=== PATIENT | female | born 1975 | race Caucasian/White ===

== ENCOUNTER 2020-04-08 15:31 | Outpatient (REF) | payer MEDICARE, MEDICAID, SELFPAY | END 2020-04-08 15:32 | disposition home or self-care (01) | LOC: HO.LAB 15:31 | PROVIDERS: Visit Provider Internal Medicine | DX: Z20.828 Contact with and (suspected) exposure to other viral communicable diseases (principal) | CPT/HCPCS: C9803; U0003 ==

== ENCOUNTER 2020-08-25 11:16 | Outpatient (REF) | payer MEDICARE, MEDICAID, SELFPAY ==
[2020-08-25 12:02] LABS: MANUAL DIFF FLAG NO
[2020-08-25 12:08] LABS: Basophils Percent Auto 0.6 % (0-2); Eosinophils Absolute Auto 0.1 X10*3/uL (0.0-0.4); Eosinophils Percent Auto 1.4 % (0-4); Hematocrit 35.4 % (37-47); Imm Gran Abs Auto 0.01 X10*3/uL (0.00-0.03); Imm Gran Pct Auto 0.2 % (0.0-0.4); Lymphocytes Absolute Auto 1.5 X10*3/uL (1.2-4.9); Lymphocytes Percent Auto 29.6 % (20-40); Mean Corpuscular HGB Conc 31.1 g/dl (31.0-35.0); Mean Corpuscular Hemoglobin 26.4 pg (27.0-33.0); Mean Corpuscular Volume 84.9 fL (80-98); Mean Platelet Volume 11.4 fL (9.4-12.3); Monocytes Absolute Auto 0.5 X10*3/uL (0.1-1.2); Monocytes Percent Auto 10.4 % (2-11); Neutrophils Percent Auto 57.8 % (45-73); Platelet Count 208 X10*3/uL (160-400); Red Blood Count 4.17 X10*6/uL (4.20-5.50); Red Cell Distribution Width 13.7 % (11.0-16.0); White Blood Count 5.2 X10*3/uL (4.8-10.8)
[2020-08-25 12:39] LABS: Alanine Aminotransferase 14 U/L (0-31); Albumin Level 4.1 g/dL (3.5-5.0); Alkaline Phosphatase 67 U/L (39-117); Anion Gap 10 (12-20); Aspartate Amino Transferase 15 U/L (5-31); Bilirubin Total 0.3 mg/dL (0.0-1.0); Blood Urea Nitrogen 14 mg/dL (9-16); C Reactive Protein 0.26 mg/dL (< or = 0.50); Carbon Dioxide 25 mmol/L (22-29); Chloride 108 mmol/L (96-108); Estimated Glomerular Filt Rate > 60; Glucose Random 88 mg/dL (60-115); Potassium 4.3 mmol/L (3.3-5.1); Sodium 139 mmol/L (135-145); Total Protein 7.4 g/dL (6.5-8.0)
[2020-08-25 12:54] LABS: Erythrocyte Sedimentation Rate 17 MM/HR (0-20)
== END 2020-08-25 11:17 | disposition home or self-care (01) ==
LOC: HO.LAB 11:16
PROVIDERS: PCP Physician Assistant; Visit Provider Student in an Organized Health Care Education/Training Program
DX: M19.90 Unspecified osteoarthritis, unspecified site (principal)
CPT/HCPCS: 36415; 80053; 85025; 85652; 86140

== ENCOUNTER → 2020-08-28 11:31 | Outpatient (BNVA) | payer MEDICARE, MEDICAID, SELFPAY | PROVIDERS: PCP Physician Assistant; Visit Provider Student in an Organized Health Care Education/Training Program | DX: M06.00 Rheumatoid arthritis without rheumatoid factor, unspecified site (principal); R76.8 Other specified abnormal immunological findings in serum | CPT/HCPCS: 99212 ==

== ENCOUNTER 2020-11-30 11:09 | Outpatient (REF) | payer MEDICARE, MEDICAID, SELFPAY ==
[2020-11-30 12:22] LABS: Basophils Percent Auto 0.2 % (0-2); Eosinophils Absolute Auto 0.1 X10*3/uL (0.0-0.4); Eosinophils Percent Auto 0.8 % (0-4); Hematocrit 37.3 % (37-47); Hemoglobin 11.7 g/dl (12.0-16.0); Imm Gran Abs Auto 0.01 X10*3/uL (0.00-0.03); Imm Gran Pct Auto 0.2 % (0.0-0.4); Lymphocytes Absolute Auto 1.5 X10*3/uL (1.2-4.9); Lymphocytes Percent Auto 23.2 % (20-40); MANUAL DIFF FLAG NO; Mean Corpuscular HGB Conc 31.4 g/dl (31.0-35.0); Mean Corpuscular Hemoglobin 26.4 pg (27.0-33.0); Mean Corpuscular Volume 84.2 fL (80-98); Mean Platelet Volume 11.4 fL (9.4-12.3); Monocytes Absolute Auto 0.5 X10*3/uL (0.1-1.2); Monocytes Percent Auto 7.7 % (2-11); Neutrophils Absolute Auto 4.5 X10*3/uL (2.0-8.3); Neutrophils Percent Auto 67.9 % (45-73); Platelet Count 223 X10*3/uL (160-400); Red Blood Count 4.43 X10*6/uL (4.20-5.50); Red Cell Distribution Width 14.3 % (11.0-16.0); White Blood Count 6.7 X10*3/uL (4.8-10.8)
[2020-11-30 12:45] LABS: Alanine Aminotransferase 7 U/L (0-31); Albumin Level 4.2 g/dL (3.5-5.0); Alkaline Phosphatase 63 U/L (39-117); Anion Gap 10 (12-20); Aspartate Amino Transferase 13 U/L (5-31); Bilirubin Total 0.4 mg/dL (0.0-1.0); Blood Urea Nitrogen 12 mg/dL (9-16); C Reactive Protein 0.26 mg/dL (< or = 0.50); Calcium 9.5 mg/dL (8.4-10.2); Carbon Dioxide 28 mmol/L (22-29); Chloride 107 mmol/L (96-108); Estimated Glomerular Filt Rate > 60; Glucose Random 91 mg/dL (60-115); Potassium 4.1 mmol/L (3.3-5.1); Sodium 141 mmol/L (135-145); Total Protein 7.6 g/dL (6.5-8.0)
[2020-11-30 13:13] LABS: Erythrocyte Sedimentation Rate 18 MM/HR (0-20)
[2020-12-01 15:12] LABS: Complement C3 115 mg/dL (83-193)
[2020-12-02 14:56] LABS: Anti DNA DS Antibody 4 IU/mL
== END 2020-11-30 11:10 | disposition home or self-care (01) ==
LOC: HO.LAB 11:09
PROVIDERS: PCP Physician Assistant; Visit Provider Student in an Organized Health Care Education/Training Program
DX: R76.8 Other specified abnormal immunological findings in serum (principal)
CPT/HCPCS: 36415; 80053; 85025; 85652; 86140; 86160; 86225

== ENCOUNTER 2021-11-01 09:42 | Outpatient (REF) | payer MEDICARE, MEDICAID, SELFPAY ==
[2021-11-01 09:59] LABS: MANUAL DIFF FLAG NO
[2021-11-01 10:32] LABS: Basophils Percent Auto 0.4 % (0-2); Eosinophils Absolute Auto 0.1 X10*3/uL (0.0-0.4); Hemoglobin 11.4 g/dl (12.0-16.0); Imm Gran Abs Auto 0.02 X10*3/uL (0.00-0.03); Imm Gran Pct Auto 0.4 % (0.0-0.4); Lymphocytes Absolute Auto 1.2 X10*3/uL (1.2-4.9); Lymphocytes Percent Auto 23.3 % (20-40); Mean Corpuscular HGB Conc 31.7 g/dl (31.0-35.0); Mean Corpuscular Volume 82.2 fL (80.0-98.0); Mean Platelet Volume 11.6 fL (9.4-12.3); Monocytes Absolute Auto 0.5 X10*3/uL (0.1-1.2); Monocytes Percent Auto 9.7 % (2-11); Neutrophils Absolute Auto 3.4 x10*3/uL (2.0-8.3); Neutrophils Percent Auto 65.2 % (45-73); Platelet Count 250 X10*3/uL (160-400); Red Blood Count 4.38 X10*6/uL (4.20-5.50); Red Cell Distribution Width 15.1 % (11.0-16.0); White Blood Count 5.2 X10*3/uL (4.8-10.8)
[2021-11-01 11:11] LABS: Alanine Aminotransferase 14 U/L (0-31); Albumin Level 4.1 g/dL (3.5-5.0); Alkaline Phosphatase 74 U/L (39-117); Anion Gap 11 (12-20); Aspartate Amino Transferase 15 U/L (5-31); Bilirubin Total 0.5 mg/dL (0.0-1.0); Blood Urea Nitrogen 12 mg/dL (9-16); C Reactive Protein 0.79 mg/dL (< or = 0.50); Calcium 9.1 mg/dL (8.4-10.2); Carbon Dioxide 24 mmol/L (22-29); Chloride 108 mmol/L (96-108); Cholesterol 126 mg/dL; Estimated Glomerular Filt Rate > 60; Glucose Random 90 mg/dL (60-115); HDL Cholesterol 40 mg/dL; LDL Cholesterol Calculated 75 mg/dl; Potassium 4.3 mmol/L (3.3-5.1); Reflex LDLD? No; Sodium 139 mmol/L (135-145); Total Protein 7.6 g/dL (6.5-8.0); Triglycerides 56 mg/dL
[2021-11-01 11:22] LABS: HBc Num1 0.11 S/CO (0.00-0.79); HBsAGNum1 0.24 S/CO (0.00-0.99); Hepatitis B Core Antibody Nonreactive (Nonreactive); Hepatitis B Surface Antigen Negative (Negative); ~HepC Num1 0.14 S/CO (0.00-0.79); ~Hepatitis B Surface Antibody REACTIVE (Nonreactive); ~Hepatitis C Antibody Nonreactive (Nonreactive)
[2021-11-01 11:24] LABS: Erythrocyte Sedimentation Rate 29 MM/HR (0-20)
[2021-11-03 07:51] LABS: Hepatitis A Antibody IgM 0.15 Index (0-0.79); ~Hepatitis A Antibody IgM Nonreactive (Nonreactive)
[2021-11-03 20:52] LABS: TS Negative Control Passed; TS Panel A 0; TS Panel B 0; TS Positive Control Passed; TSpotTB Negative (Negative)
== END 2021-11-01 09:43 | disposition home or self-care (01) ==
LOC: HO.LAB 09:42
PROVIDERS: PCP Physician Assistant; Visit Provider Nurse Practitioner Family
DX: Z11.1 Encounter for screening for respiratory tuberculosis (principal); M06.00 Rheumatoid arthritis without rheumatoid factor, unspecified site; M19.90 Unspecified osteoarthritis, unspecified site; R76.8 Other specified abnormal immunological findings in serum
CPT/HCPCS: 36415; 80053; 80061; 85025; 85652; 86140; 86481; 86704; 86706; 86709; 86803; 87340; 99212

== ENCOUNTER 2022-11-28 08:58 | Outpatient (AMB) | payer OTHER, SELFPAY ==
--- NOTE | 2022-11-28 09:02 | MHC.OFFVIS ---
Intake Vital Signs 11/28/22 09:04 Height 5 ft 2 in Weight 127 lb 13.89 oz BMI 23.4 BP 104/66 Blood Pressure Location Lt brachial Position Sitting Pulse 95 Pulse Source Pulse Oximeter Temp 97.9 F Temp Source Skin Pulse Oximetry (%) 99 Intake Visit Reasons: RA Intake Note: Pt seen today for RA follow up, last seen October 2021. Reports pain in back and neck; inflammation throughout joints in hands and ankles. Treated with xeljanz and plaquenil in the past, states that's when she felt her best. Permastone Installer Required: No Accompanied by: Self / Same As Patient Allergies Cortisone Adverse Reaction (Intermediate, Uncoded 11/28/22 09:07) numbness left side of body HPI HPI Comments History of Present Illness Details The patient returns today for evaluation of her rheumatoid arthritis. She had been seen about a year ago. She was having some joint pain in there was discussion about restarting her back on Xeljanz and hydroxychloroquine but it never happened. She has been altering her diet and takes occasional ibuprofen with some improvement. She notes in the past 3 months there has been increased pain particularly in the hands neck, upper back, and shoulders. Initially her disease was treated with methotrexate but then it seemed to cause nausea and she stopped it. In 2014 through 2016 she was on Arava with some improvement but it caused hand numbness and hair loss so it was discontinued. There were discussions about trying subcutaneous methotrexate and then Kevzara in early 2018. Eventually she did end up on Xeljanz and hydroxychloroquine for a year. When she improved she decided to stop it apparently but she was wondering if that improvement could have been related to dietary changes. At this point she admittedly is worse so wants to go back on some treatment. [facility] Medical History (Updated 11/28/22 @ 18:09 by Philip Rodgers MD) JOSE positive Seronegative rheumatoid arthritis Family History (Updated 11/28/22 @ 09:10 by MARIELY Newman) Father Asthma COPD (chronic obstructive pulmonary disease) Diabetes Mother Arthritis Social History Alcohol intake: current Alcohol intake frequency: holidays/special occasions only Alcohol type: wine Patient Tobacco Use Status: Never used Tobacco Review of Systems Const Details: Negative for appetite change, weight change, fever, chills, malaise and fatigue Eyes Details: Negative for vision change, dry eyes,headaches and dizziness ENT Details: Negative for hearing change, tinnitus, oral ulcer, nose bleeds and oral dryness. Card Details: Negative chest pain, edema and syncope Resp Details: Negative for SOB, cough and wheezing GI Details: Negative indigestion/heartburn, nausea, abdominal pain, bowel changes, diarrhea, constipation and bloody stool. Skin/Breast Details: Negative for itching, rash, hives, Raynaud's symptoms, sun sensitivity, and skin cancer Endo Details: Negative for polyuria and polydypsia John/Lymph Details: Negative for excessive bruising or bleeding. Physical Exam Vital Signs: Last Vital Signs Temp 97.9 F 11/28/22 09:04 Pulse 95 11/28/22 09:04 BP 104/66 11/28/22 09:04 Pulse Ox 99 11/28/22 09:04 BMI result Body Mass Index 23.4 APPEARANCE: Patient in no acute distress EYES no redness, pupils equal and reactive to light, eyelids normal THROAT: Oral mucosa moist, no ulcerations ABD: Normal bowel sounds, no organomegaly, masses or tenderness. EXTREMITIES: No edema, no calf tenderness, normal peripheral pulses. SKIN: No inflammatory or neoplastic lesions. Normal color and turgor JOINT EXAM:?? Cervical Spine:.? Mild pain with extremes of normal range of motion. Mild cervical muscle tenderness. Thoracic Spine:.? No scoliosis.? No tenderness on palpation. Lumbar Spine:.? Alignment normal.? Full range of motion with slight pain at the extremes. No tenderness. Chest Wall:.? No tenderness, swelling, increased warmth or erythema. Hands:.? Right: Mild pain with range of motion of the 1st 3 fingers. There is mild swelling and tenderness of the 1st 3 MCP joints. There is tenderness of the thumb IP and 2nd 3rd PIP joints. The 2nd 3rd PIP has some slight thickening. There is no flexor tendon triggering, thenar atrophy or sensory loss. Left: Mild thickening of the thumb IP in all the PIP joints. There is mild tenderness across the 5th PIP. No thenar atrophy or sensory loss. No flexor tendon triggering, or MCP tenderness. Wrists:? Right: Mild pain and limitation of motion at 45 degrees of flexion or extension. Slight tenderness but no swelling. Left: Mild pain with flexion at 45 degrees or extension at 20 degrees. There is some soft tissue swelling and mild tenderness. No redness or warmth. Elbows:. Right: Mild pain with full extension. There appears to be some soft tissue swelling around the medial epicondylar region. No tenderness or swelling over the lateral epicondyle or the joint space. Left: Normal pain-free range of motion without tenderness, swelling, increased warmth or erythema. Shoulders: Right: There is mild pain with abduction 135 degrees or with more than 20 degrees of internal or external rotation. Mild anterior and subacromial tenderness. No adenopathy. Left: Mild pain with abduction 120 degrees or with more than 10 degrees of internal or external rotation. There is mild anterior and subacromial tenderness without swelling or adenopathy. Hips:.? Full range of motion with slight lateral pain with extremes of normal range of motion. No groin pain with motion. Hip bursa:.? Mild trochanteric tenderness. Knees:.??Left: Pain-free range of motion with some mild medial compartment tenderness but no swelling or redness. No patellofemoral crepitus. Right: Normal pain-free range of motion without tenderness, swelling, increased warmth or erythema.? There is no effusion or crepitation Ankles:.? Mild pain with extremes of normal inversion and eversion. There is some soft tissue swelling and tenderness mostly medially and more prominently so in the left ankle. No redness or warmth. Feet:.? Normal pain-free range of motion without tenderness, swelling, increased warmth or erythema. Tender points:.? No tenderness to digital palpation at the occiput, trapezius, second rib, lateral epicondyle, knees, greater trochanter and gluteal area bilaterally. ? 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 2014 methotrexate helpful but caused nausea so it was stopped. [id number] Arava tried but stopped due to hair loss and hand paresthesias. 2019 Xeljanz and hydroxychloroquine seem to be helpful. Patient discontinued them because she thought dietary measures would be helpful. Code(s): M06.00 - Rheumatoid arthritis without rheumatoid factor, unspecified site Plan The patient has multiple swollen tender joints on exam reflecting active inflammatory arthritis from her RA. She clearly needs to be on a DMARD. I explained that we needed to be more diligent at treating her inflammatory arthritis both to improve her short-term symptoms but also to try to prevent destructive disease in the future. She has some limitation of motion in the wrists with suggests she may have significant destructive disease there. She was most successfully treated she thinks when the Xeljanz was added to the hydroxychloroquine so we will try to get that approved. We will check lab work including T spot testing to get a baseline on her blood tests. We will aim for follow-up at about 6 weeks, hopefully by then she will be on the Xeljanz. Use of that drug likely will require probably a new prior authorization. Her history today, review of her chart, exam, and discussion of alternatives for treatment took 38 minutes. Orders: Orders Comprehensive Met. 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 Complete Blood Count Auto Diff Today M06.00 - Rheumatoid arthritis without rheumatoid factor, unspecified site, Z79.60 - retirement (current) use of unspecified immunomodulators and immunosuppressants, Z79.899 - Other assisted (current) drug therapy Erythrocyte Sedimentation Rate Today M06.00 - Rheumatoid arthritis without rheumatoid factor, unspecified site, Z79.60 - retirement (current) use of unspecified immunomodulators and immunosuppressants T Spot TB Today M06.00 - Rheumatoid arthritis without rheumatoid factor, unspecified site, 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
[2022-11-28 09:04] VITALS: BP 104/66; PULSE 95; TEMP 36.6; O2SAT 99; BMI 23.4
== END 2022-11-28 10:04 | disposition home or self-care (01) ==
LOC: HO.RHE 08:58
PROVIDERS: PCP Physician Assistant; Visit Provider Internal Medicine Rheumatology
DX: R76.8 Other specified abnormal immunological findings in serum (principal); Z79.60 Long term (current) use of unspecified immunomodulators and immunosuppressants; M06.00 Rheumatoid arthritis without rheumatoid factor, unspecified site
CPT/HCPCS: 99214

== ENCOUNTER → 2022-11-28 08:58 | Outpatient (BNVA) | payer OTHER, SELFPAY | PROVIDERS: PCP Physician Assistant; Visit Provider Internal Medicine Rheumatology | DX: M06.00 Rheumatoid arthritis without rheumatoid factor, unspecified site (principal); R76.8 Other specified abnormal immunological findings in serum; Z79.60 Long term (current) use of unspecified immunomodulators and immunosuppressants | CPT/HCPCS: 99212 ==

== ENCOUNTER 2022-11-29 14:46 | Outpatient (REF) | payer OTHER, SELFPAY ==
[2022-11-29 15:07] LABS: MANUAL DIFF FLAG NO
[2022-11-29 15:36] LABS: Basophils Percent Auto 0.2 % (0-2); Eosinophils Percent Auto 0.9 % (0-4); Hemoglobin 9.8 g/dl (12.0-16.0); Imm Gran Abs Auto 0.01 X10*3/uL (0.00-0.03); Imm Gran Pct Auto 0.2 % (0.0-0.4); Lymphocytes Absolute Auto 1.5 X10*3/uL (1.2-4.9); Lymphocytes Percent Auto 31.5 % (20-40); Mean Corpuscular HGB Conc 30.6 g/dl (31.0-35.0); Mean Corpuscular Hemoglobin 23.8 pg (27.0-33.0); Mean Corpuscular Volume 77.7 fL (80.0-98.0); Mean Platelet Volume 11.4 fL (9.4-12.3); Monocytes Absolute Auto 0.3 X10*3/uL (0.1-1.2); Neutrophils Absolute Auto 2.8 x10*3/uL (2.0-8.3); Neutrophils Percent Auto 60.2 % (45-73); Platelet Count 295 X10*3/uL (160-400); Red Blood Count 4.12 X10*6/uL (4.20-5.50); Red Cell Distribution Width 14.6 % (11.0-16.0); White Blood Count 4.7 X10*3/uL (4.8-10.8)
[2022-11-29 16:14] LABS: Erythrocyte Sedimentation Rate 53 MM/HR (0-20)
[2022-11-29 17:56] LABS: Alanine Aminotransferase 8 U/L (0-31); Albumin Level 3.9 g/dL (3.5-5.0); Alkaline Phosphatase 76 U/L (39-117); Anion Gap 13 (12-20); Aspartate Amino Transferase 14 U/L (5-31); Bilirubin Total 0.3 mg/dL (0.0-1.0); Blood Urea Nitrogen 9 mg/dL (9-16); C Reactive Protein 1.77 mg/dL (< or = 0.50); Calcium 9.9 mg/dL (8.4-10.2); Carbon Dioxide 23 mmol/L (22-29); Chloride 105 mmol/L (96-108); Estimated Glomerular Filt Rate > 60; Glucose Random 87 mg/dL (60-115); Potassium 3.7 mmol/L (3.3-5.1); Sodium 137 mmol/L (135-145); Total Protein 8.1 g/dL (6.5-8.0)
[2022-12-01 16:19] LABS: TS Negative Control Passed; TS Panel A 0; TS Panel B 0; TS Positive Control Passed; TSpotTB Negative (Negative)
== END 2022-11-29 14:47 | disposition home or self-care (01) ==
LOC: HO.LAB 14:46
PROVIDERS: PCP Physician Assistant; Visit Provider Internal Medicine Rheumatology
DX: Z11.1 Encounter for screening for respiratory tuberculosis (principal); M06.00 Rheumatoid arthritis without rheumatoid factor, unspecified site; Z79.60 Long term (current) use of unspecified immunomodulators and immunosuppressants; Z79.899 Other long term (current) drug therapy
CPT/HCPCS: 36415; 80053; 85025; 85652; 86140; 86481

== ENCOUNTER 2022-12-02 14:52 | Outpatient (REF) | payer OTHER, SELFPAY ==
[2022-12-02 15:24] LABS: MANUAL DIFF FLAG NO
[2022-12-02 16:08] LABS: Basophils Percent Auto 0.2 % (0-2); Hematocrit 29.8 % (37.0-47.0); Hemoglobin 9.2 g/dl (12.0-16.0); Imm Gran Abs Auto 0.01 X10*3/uL (0.00-0.03); Imm Gran Pct Auto 0.2 % (0.0-0.4); Lymphocytes Absolute Auto 1.2 X10*3/uL (1.2-4.9); Lymphocytes Percent Auto 28.5 % (20-40); Mean Corpuscular HGB Conc 30.9 g/dl (31.0-35.0); Mean Corpuscular Hemoglobin 24.1 pg (27.0-33.0); Mean Platelet Volume 10.8 fL (9.4-12.3); Monocytes Absolute Auto 0.3 X10*3/uL (0.1-1.2); Monocytes Percent Auto 7.8 % (2-11); Neutrophils Absolute Auto 2.6 x10*3/uL (2.0-8.3); Neutrophils Percent Auto 62.3 % (45-73); Platelet Count 274 X10*3/uL (160-400); Red Blood Count 3.82 X10*6/uL (4.20-5.50); Red Cell Distribution Width 14.6 % (11.0-16.0); White Blood Count 4.1 X10*3/uL (4.8-10.8)
[2022-12-02 16:31] LABS: Iron 28 mcg/dL (30-160); Percent Iron Saturation 9 % (15-50); Total Iron Binding Capacity 297 mcg/dL (228-428); Unsaturated Iron Binding 269 ug/dL
[2022-12-02 16:57] LABS: Vitamin B12 511 pg/mL (200-900)
[2022-12-07 22:28] LABS: Haptoglobin 192 mg/dL (43-212)
== END 2022-12-02 14:53 | disposition home or self-care (01) ==
LOC: HO.LAB 14:52
PROVIDERS: Visit Provider Internal Medicine Rheumatology
DX: D64.9 Anemia, unspecified (principal); M06.00 Rheumatoid arthritis without rheumatoid factor, unspecified site
CPT/HCPCS: 36415; 82607; 83010; 83540; 85025

== ENCOUNTER 2022-12-26 11:55 | Outpatient (REF) | payer OTHER, SELFPAY ==
[2022-12-27 05:40] LABS: CT PCR NOT DETECTED (Not Detect.); NG PCR NOT DETECTED (Not Detect.)
[2022-12-31 09:44] LABS: HPV mRNA E6/E7 rflx Not Detected (Not Detected)
== END 2022-12-26 11:56 | disposition home or self-care (01) ==
LOC: HO.LNP 11:55
PROVIDERS: PCP Physician Assistant; Visit Provider Obstetrics & Gynecology
DX: Z12.4 Encounter for screening for malignant neoplasm of cervix (principal); Z11.51 Encounter for screening for human papillomavirus (HPV); N93.9 Abnormal uterine and vaginal bleeding, unspecified; Z20.2 Contact with and (suspected) exposure to infections with a predominantly sexual mode of transmission
CPT/HCPCS: 0353U; 87624; 88142; 99202

== ENCOUNTER 2022-12-26 11:55 | Outpatient (AMB) | payer OTHER, SELFPAY ==
--- NOTE | 2022-12-26 11:59 | MHC.OFFVIS ---
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 it started few months ago and is getting worse no other associated symptoms. Last co testing was in 2012 was negative. Last mammogram was many years ago [facility] Medical History (Updated 12/26/22 @ 12:23 by Cheng Robb MD) JOSE positive Seronegative rheumatoid arthritis Severe dysplasia of cervix Family History Father Asthma COPD (chronic obstructive pulmonary disease) Diabetes Mother Arthritis Social History Alcohol intake: current Alcohol intake frequency: holidays/special occasions only Alcohol type: wine Patient Tobacco Use Status: Never used Tobacco Female Reproductive History Menstrual Date of last menstrual period: 12/11/22 Physical Exam Vital Signs: BMI result Body Mass Index 22.5 Assessment & Plan Assessment & Plan (1) Abnormal uterine bleeding (AUB): Comment: Rheumatoid arthritis Code(s): N93.9 - Abnormal uterine and vaginal bleeding, unspecified Plan: Co testing done, GC and chlamydia taken CBC, TSH, prolactin, FSH/LH, HCG, screening mammogram and pelvic ultrasound ordered. Discussed with the patient the different causes of abnormal bleeding including thyroid disorders, uterine and ovarian pathology, endometrial hyperplasia, carcinoma and other potential causes. Discussed with the patient the work up including CBC (to r/o anemia), TSH, pelvic Ultrasound, endometrial biopsy to r/o endometrial pathology. All questions answered and the patient verbalized understanding. Instructed the patient to schedule an appointment for an endometrial biopsy in 2 weeks. Orders: Orders CT NG by PCR Today N93.9 - Abnormal uterine and vaginal bleeding, unspecified Pap Smear Today N93.9 - Abnormal uterine and vaginal bleeding, unspecified Follicle Stimulating Hormone Today N93.9 - Abnormal uterine and vaginal bleeding, unspecified HCG Quantitative Today N93.9 - Abnormal uterine and vaginal bleeding, unspecified Lutenizing Hormone Today N93.9 - Abnormal uterine and vaginal bleeding, unspecified Prolactin Today N93.9 - Abnormal uterine and vaginal bleeding, unspecified TSH reflex Free T4 Today N93.9 - Abnormal uterine and vaginal bleeding, unspecified Complete Blood Count no Diff Today N93.9 - Abnormal uterine and vaginal bleeding, unspecified MM screening mammo BI Today Z12.31 - Encounter for screening mammogram for malignant neoplasm of breast US pelvic and transvaginal Today N93.9 - Abnormal uterine and vaginal bleeding, unspecified Coding Level of Care Code New Pt Level 3 (55797) Diagnoses Abnormal uterine bleeding (AUB) N93.9
[2022-12-26 12:00] VITALS: BP 102/66; BMI 22.5
== END 2022-12-26 12:30 | disposition home or self-care (01) ==
LOC: HO.HWS 11:55
PROVIDERS: PCP Physician Assistant; Visit Provider Obstetrics & Gynecology
DX: N93.9 Abnormal uterine and vaginal bleeding, unspecified (principal)
CPT/HCPCS: 99203

== ENCOUNTER 2022-12-27 09:54 | Outpatient (REF) | payer OTHER, SELFPAY ==
[2022-12-27 11:03] LABS: Hematocrit 33.9 % (37.0-47.0); Mean Corpuscular HGB Conc 29.5 g/dl (31.0-35.0); Mean Corpuscular Hemoglobin 23.6 pg (27.0-33.0); Mean Corpuscular Volume 80.1 fL (80.0-98.0); Mean Platelet Volume 11.5 fL (9.4-12.3); Platelet Count 264 X10*3/uL (160-400); Red Blood Count 4.23 X10*6/uL (4.20-5.50); Red Cell Distribution Width 17.2 % (11.0-16.0); White Blood Count 7.6 X10*3/uL (4.8-10.8)
[2022-12-27 12:00] LABS: HCG Quantitative < 2 mIU/mL; TSH reflex Free T4 1.84 uIU/mL (0.32-4.0)
[2022-12-29 00:38] LABS: Follicle Stimulating Hormone 3.3 mIU/mL; Lutenizing Hormone 2.6 mIU/mL; Prolactin 26.2 ng/mL
== END 2022-12-27 09:55 | disposition home or self-care (01) ==
LOC: HO.LAB 09:54
PROVIDERS: PCP Physician Assistant; Visit Provider Obstetrics & Gynecology
DX: N93.9 Abnormal uterine and vaginal bleeding, unspecified (principal)
CPT/HCPCS: 36415; 83001; 83002; 84146; 84443; 84702; 85027

== ENCOUNTER 2022-12-30 12:32 | Outpatient (REF) | payer OTHER, SELFPAY ==
--- NOTE | ~2022-12-30 | US_ITS ---
EXAMINATION: US PELVIC AND TRANSVAGINAL CLINICAL INFORMATION: Abnormal uterine bleeding. Unknown last menstrual period. Correlation with clinical exam recommended to determine further management. COMPARISON: None available. TECHNIQUE: Ultrasound of the pelvis is performed using both transabdominal and transvaginal transducers along with Doppler. Transvaginal imaging is performed due to inadequate visualization transabdominally. FINDINGS: The uterus is anteverted, heterogeneous and measures 9.0 x 5.5 x 8.0 cm, volume 160.1 mL. No discrete fibroids identified. Endometrial echogenic with thickness of 1.5 cm. Complex 0.6 x 0.5 x 0.7 cm hypoechoic collection with irregular margins within the endometrium. Right ovary measures 3.1 x 2.0 x 2.2 cm, volume 7.14 mL. Right ovary is unremarkable. Left ovary measures 3.7 x 2.3 x 2.3 cm, volume 10.25 mm. Left ovarian 1.8 x 1.9 x 1.7 cm complex, hypoechoic, heterogeneous lesion. No internal vascularity is demonstrated. US/US pelvic and transvaginal IMPRESSION: 1. Echogenic endometrium with thickness of 15 mm and 0.7 cm complex cystic focus. 2. Left ovarian 1.9 cm complex, hypoechoic mass with no internal vascularity. 3. Unknown menstrual status. Gynecologic consultation recommended to determine further management including additional imaging such as MRI or followup ultrasound and/or possible biopsy. This study was presented today 01/02/2023 at 7:51 AM for interpretation. PSA staff will provide results to referring provider at this time.
== END 2022-12-30 12:33 | disposition home or self-care (01) ==
LOC: HO.US 12:32
PROVIDERS: PCP Physician Assistant; Visit Provider Obstetrics & Gynecology
DX: N93.9 Abnormal uterine and vaginal bleeding, unspecified (principal)
CPT/HCPCS: 76830; 76856

== ENCOUNTER 2023-01-05 11:14 | Outpatient (REF) | payer OTHER, SELFPAY ==
[2023-01-06 12:23] LABS: CA-125 22 U/mL (<35)
== END 2023-01-05 11:15 | disposition home or self-care (01) ==
LOC: HO.LAB 11:14
PROVIDERS: PCP Physician Assistant; Visit Provider Obstetrics & Gynecology
DX: N83.299 Other ovarian cyst, unspecified side (principal)
CPT/HCPCS: 36415; 86304

== ENCOUNTER 2023-01-16 09:24 | Outpatient (AMB) | payer OTHER, SELFPAY ==
[2023-01-16 09:26] VITALS: BP 118/76; PULSE 78; TEMP 36.5; O2SAT 99; BMI 23.1
--- NOTE | 2023-01-16 09:26 | MHC.OFFVIS ---
Intake Vital Signs 01/16/23 09:26 Height 5 ft 2 in Weight 126 lb 1.671 oz BMI 23.1 BP 118/76 Blood Pressure Location Rt brachial Position Sitting Pulse 78 Temp 97.7 F Temp Source Skin Pulse Oximetry (%) 99 Oxygen Delivery Method Room Air Intake Visit Reasons: RA Intake Note: Patient is here today for RA follow up. Would like discuss treatment. Rv Service Technician Required: No Accompanied by: Self / Same As Patient Allergies Cortisone Adverse Reaction (Intermediate, Uncoded 01/16/23 09:26) numbness left side of body HPI HPI Comments History of Present Illness Details The patient returns for evaluation of her rheumatoid arthritis. At her last visit I had given her a course of prednisone. She felt considerably better but a day or two after she stopped it symptoms started to come back. This amounts to swelling and pain in a few joints in both hands, more problematic on the right. There is also some foot pain. She has also been found to be iron deficient thought to be due to heavy menstrual cycles. She did see client care consultant. Ultrasound showed an ovarian cyst and some thickening in the endometrium. Further client care consultant evaluation is planned in a week or 2. She also has a cataract surgery planned in a couple of weeks for the right eye. We tried to get her restarted on the Xeljanz which had been helpful for before but her insurance, in spite of to appeals refused. I found that their policy was to try a TNF inhibitor before the RAINA 1 inhibitor but my preference had been to restart the RAINA inhibitor. In any case we did get approval of the Humira. She has not obtained the drug yet. She had some questions about its use. [facility] Medical History (Updated 12/26/22 @ 12:23 by Cheng Robb MD) JOSE positive Seronegative rheumatoid arthritis Severe dysplasia of cervix Family History Father Asthma COPD (chronic obstructive pulmonary disease) Diabetes Mother Arthritis Social History Alcohol intake: current Alcohol intake frequency: holidays/special occasions only Alcohol type: wine Patient Tobacco Use Status: Never used Tobacco Review of Systems Const Details: Negative for appetite change, weight change, fever, chills, malaise and fatigue Eyes Details: Negative for vision change, dry eyes,headaches and dizziness Card Details: Negative chest pain, edema and syncope Resp Details: Negative for SOB, cough and wheezing GI Details: Negative indigestion/heartburn, nausea, abdominal pain, bowel changes, diarrhea, constipation and bloody stool. Details: Negative for dysuria, hematuria, nocturia, decreased force/flow and genital discharge Skin/Breast Details: Negative for itching, rash, hives, Raynaud's symptoms, sun sensitivity, and skin cancer John/Lymph Details: Negative for excessive bruising or bleeding. Physical Exam Vital Signs: Last Vital Signs Temp 97.7 F 01/16/23 09:26 Pulse 78 01/16/23 09:26 BP 118/76 01/16/23 09:26 Pulse Ox 99 01/16/23 09:26 Oxygen Delivery Method Room Air 01/16/23 09:26 BMI result Body Mass Index 23.1 APPEARANCE: Patient in no acute distress EYES no redness, pupils equal and reactive to light, eyelids normal EXTREMITIES: No edema, no calf tenderness, normal peripheral pulses. SKIN: No inflammatory or neoplastic lesions. Normal color and turgor JOINT EXAM: Cervical Spine: No painn with extremes of normal range of motion.? no cervical muscle tenderness. Thoracic Spine:.? No scoliosis.? No tenderness on palpation. Lumbar Spine:.? Alignment normal.? Full range of motion with slight pain at the extremes.? No tenderness. Chest Wall:.? No tenderness, swelling, increased warmth or erythema. Hands:.? Right:? Mild pain with range of motion of the 1st 3 fingers.? There is mild swelling and tenderness of the 1st 3 MCP joints.? There is tenderness of the thumb IP and 2nd, 3rd and 5th PIP joints.? These tender PIP's also have slight thickening.? There is mild flexor tendon tenderness at the 1st 2 flexor tendons without triggering. There is also mild tenderness at the base of the thumb. She has no flexor tendon triggering, thenar atrophy or sensory loss.? Left:? Mild tenderness of the 1st 3 and 5th MCP joints. The 2nd 3rd MCP or slightly swollen. There is mild tenderness along the flexor tendon. There is no swelling today in the PIP joints.? There is mild tenderness across the 5th PIP.? No thenar atrophy or sensory loss.? There is slight tenderness at the thumb flexor tendon. No triggering. Wrists:? Right:? Mild pain and limitation of motion at 60 degrees of flexion or extension.? Slight tenderness but no swelling.? Left:? Mild pain with flexion at 30 degrees or extension at 20 degrees.? There is some soft tissue swelling and mild tenderness.? No redness or warmth. Elbows:.? Right: Normal pain-free range of motion. No tenderness.? Left:? Normal pain-free range of motion without tenderness, swelling, increased warmth or erythema. Shoulders:? Right:? There is mild pain with abduction 150 degrees or with more than 20 degrees of internal or external rotation.? Mild anterior and subacromial tenderness.? No adenopathy.? Left:? Mild pain with abduction 135 degrees or with more than 10 degrees of internal or external rotation.? There is mild anterior and subacromial tenderness without swelling or adenopathy. Hips:.? Full range of motion with slight lateral pain with extremes of normal range of motion.? No groin pain with motion. Hip bursa:.? Mild trochanteric tenderness. Knees:.??Left:? Pain-free range of motion with some mild medial compartment tenderness but no swelling or redness.? No patellofemoral crepitus.? Right:? Normal pain-free range of motion without tenderness, swelling, increased warmth or erythema.? There is no effusion or crepitation Ankles:.? Mild pain with extremes of normal inversion and eversion.? There is some soft tissue swelling and tenderness mostly medially and more prominently so in the left ankle.? No redness or warmth. Feet:.? Normal pain-free range of motion without tenderness, swelling, increased warmth or erythema. Tender points:? No tenderness to digital palpation at the occiput, trapezius, second rib, lateral epicondyle, knees, greater trochanter and gluteal area bilaterally. ? Results Reviewed Results Reviewed: Laboratory Tests 11/29/22 11/29/22 12/02/22 15:04 15:04 15:22 WBC Hgb 9.2 L ESR 53 H Haptoglobin % Saturation C-Reactive Protein 1.77 H 12/02/22 12/02/22 12/27/22 15:22 15:22 10:18 WBC 7.6 Hgb 10.0 L ESR Haptoglobin 192 % Saturation 9 L C-Reactive Protein Laboratory Tests 10/09/18 11/29/22 14:10 15:04 Hep Bs Antigen NEGATIVE TB Test (T-Spot) Com Negative Assessment & Plan Assessment & Plan (1) Abnormal uterine bleeding (AUB): Comment: Rheumatoid arthritis Code(s): N93.9 - Abnormal uterine and vaginal bleeding, unspecified (2) Anemia: Code(s): D64.9 - Anemia, unspecified (3) Seronegative rheumatoid arthritis: Comment: Dx 2013. 2013 methotrexate helpful but caused nausea so it was stopped. [id number] Arava tried but stopped due to hair loss and hand paresthesias. 2018 Xeljanz and hydroxychloroquine seem to be helpful. Patient discontinued them because she thought dietary measures would be helpful. Code(s): M06.00 - Rheumatoid arthritis without rheumatoid factor, unspecified site Plan Rheumatoid arthritis with some response to the prednisone course in terms of her inflammation. However she clearly needs a DMARD. We reviewed the potential benefits and risk of treatment with Humira. I told her we would teach her how to give the injection. We will have to decide which pharmacy she is to receive it from. I told her to call us if she is going to have surgery and we would advise her on holding the Humira at an appropriate time frame. I do not think the surgeries planned would be likely to have a high risk of infection. I do not think she would need to hold the Humira for the cataract surgery for instance. The hemoglobin has improved with regular use of iron tablets. She is encouraged to follow through with the client care consultant workup. We will have the nurses instruct her on how to give the Humira and come in for a teaching session as well as where to order it from. For now we will resume the prednisone since it would interfere with wound healing increased infection risk around the time of surgery. We will aim for follow-up at 3 months, hopefully by then she will be on the Humira and doing better. Coding Level of Care Code Est Pt Level 3 (59247) Diagnoses Abnormal uterine bleeding (AUB) N93.9 Anemia D64.9 Seronegative rheumatoid arthritis M06.00
== END 2023-01-16 09:55 | disposition home or self-care (01) ==
PROVIDERS: PCP Physician Assistant; Visit Provider Internal Medicine Rheumatology
DX: N93.9 Abnormal uterine and vaginal bleeding, unspecified (principal); D64.9 Anemia, unspecified; M06.00 Rheumatoid arthritis without rheumatoid factor, unspecified site
CPT/HCPCS: 99213

== ENCOUNTER → 2023-01-16 09:24 | Outpatient (BNVA) | payer OTHER, SELFPAY | PROVIDERS: PCP Physician Assistant; Visit Provider Internal Medicine Rheumatology | DX: M06.00 Rheumatoid arthritis without rheumatoid factor, unspecified site (principal); D64.9 Anemia, unspecified; N93.9 Abnormal uterine and vaginal bleeding, unspecified | CPT/HCPCS: 99212 ==

== ENCOUNTER 2023-01-18 11:12 | Outpatient (REF) | payer OTHER, SELFPAY ==
--- NOTE | ~2023-01-18 | MM_ITS ---
EXAMINATION: MM SCREENING DIGITAL BREAST TOMOSYNTHESIS, BILATERAL CLINICAL INFORMATION: Screening. Asymptomatic. COMPARISON: Mammography: This is a baseline examination. TECHNIQUE: Digital breast tomosynthesis is performed in both the craniocaudal and mediolateral oblique views along with computer-aided detection (CAD). Synthesized 2D images are generated from the tomosynthesis. FINDINGS: The breasts are heterogeneously dense, which may obscure small masses (ACR BI-RADS breast composition Category c). There are no significant masses, abnormal calcifications, or other abnormalities within the breast tissue. There are prominent left axillary lymph nodes at the posterior and the left MLO projection. The absence of prior imaging for comparison, sonography of the left axilla is advised. MM/MM tomosynthesis screening BI IMPRESSION: No mammographic evidence of breast malignancy. Prominent left axillary lymph nodes which may be normal for this patient however, definitive evaluation with left axillary ultrasound is advised. ASSESSMENT: BI-RADS BI-RADS 0 - Incomplete: Needs additional Imaging. RECOMMENDATION: Targeted sonography of the left axilla is advised. 3. Radiology department staff will contact the patient for additional imaging. Additional Imaging required This examination should not preclude the clinical evaluation of a suspicious palpable abnormality. This patient's information was entered into a reminder system with a target due date for their next mammogram.
== END 2023-01-18 11:13 | disposition home or self-care (01) ==
LOC: HO.MAMMO 11:12
PROVIDERS: PCP Physician Assistant; Visit Provider Obstetrics & Gynecology
DX: Z12.31 Encounter for screening mammogram for malignant neoplasm of breast (principal)
CPT/HCPCS: 77063; 77067

== ENCOUNTER → 2023-01-18 11:30 | Outpatient (BNV) | payer OTHER, SELFPAY | PROVIDERS: PCP Physician Assistant; Visit Provider Radiology Diagnostic Radiology | DX: Z12.31 Encounter for screening mammogram for malignant neoplasm of breast (principal) | CPT/HCPCS: 77063; 77067 ==

== ENCOUNTER 2023-01-24 11:20 | Outpatient (AMB) | payer OTHER, SELFPAY ==
--- NOTE | 2023-01-24 11:22 | MHC.PC.OV ---
Vital Signs 01/24/23 11:27 Height 5 ft 2 in Weight 125 lb 4 oz BMI 22.9 BP 120/72 Blood Pressure Location Lt brachial Position Sitting Pulse 83 Pulse Source Pulse Oximeter Pulse Oximetry (%) 98 Oxygen Delivery Method Room Air Intake Visit Reasons: NPV- recare Intake Note: Patient is a new patient here to establish care for RA, Lupus ?, Abnormal uterine, Chronic pain. Transferring care from Michele Melgoza. Medical records have been requested and have received. [place] Hand Required: No Street Commissioner: Not Required per policy Accompanied by: Self / Same As Patient Allergies Cortisone Adverse Reaction (Intermediate, Uncoded 01/24/23 11:45) numbness left side of body Medication List - Last Reconciled 01/24/23 by Michele Melgoza PA-C adalimumab (Humira(CF) Pen) 40 mg (0.4 mL) subcut Q2W 56 days biotin 2,500 mcg PO DAILY cholecalciferol (vitamin D3) 25 mcg PO DAILY ferrous fumarate 325 mg PO DAILY folic acid 0.4 mg PO DAILY ketorolac 0.5% 1 drp ophthalmic (eye) TID mecobalamin (vitamin B12) 1,000 mcg PO DAILY pyridoxine (vitamin B6) 100 mg PO DAILY zinc gluconate 30 mg PO DAILY Tobacco use date assessed: 01/24/23 Dental Screening Dental Screen Date: 01/24/23 Did you have a dental visit in the last 12 months?: No Did you have a dental problem in the last 6 months where you did not have access to dental care?: No Was dental information given to patient?: No HPI NPV- recare HPI Details Patient is a 47-year-old female here today for a reestablish care visit. Patient has a past medical history significant for seronegative rheumatoid arthritis, dysfunctional uterine bleeding, iron deficiency anemia. .. Rheumatoid arthritis: Patient followed by Rheumatology and continues on disease modifying drug Humira for the treatment of her rheumatoid arthritis. Recently had a flare in her rheumatoid arthritis requiring p.o. steroids for few weeks which drastically reduced her inflammation and pain. Has been found to iron deficiency anemia and has been started on vitamins including iron and has felt much better. .. 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 CA 125 was negative. Has follow-up OBGYN in near future discussed plan of care. Laboratory Tests 10/09/18 02/04/19 11/30/20 09:15 16:25 11:29 Hgb CA 125 Antigen TSH Prolactin JOSE Screen Positive H JOSE Titer 1:640 H Double Strand DNA Ab 13 H 4 11/29/22 12/02/22 12/27/22 15:04 15:22 10:18 Hgb 9.8 L 9.2 L 10.0 L CA 125 Antigen TSH Prolactin JOSE Screen JOSE Titer Double Strand DNA Ab 12/27/22 12/27/22 01/05/23 10:18 10:18 11:25 Hgb CA 125 Antigen 22 TSH 1.84 Prolactin 26.2 JOSE Screen JOSE Titer Double Strand DNA Ab PFSH Medical History JOSE positive Seronegative rheumatoid arthritis Severe dysplasia of cervix Surgical History History of cataract surgery History of dental surgery Family History Father Asthma COPD (chronic obstructive pulmonary disease) Diabetes Mother Arthritis Mental health disorder Sister Mental health disorder Brother Mental health disorder Social History Housing: Apartment Alcohol intake: current Alcohol intake frequency: holidays/special occasions only Alcohol type: wine Patient Tobacco Use Status: Never used Tobacco e-Cigarette/Vaping Use: Never Used Second Hand Smoke Exposure: No service: No Current occupational status: unemployed Cognitive needs: No Hearing needs: No Vision needs: Yes (glasses) Questionnaire PHQ-9 Over the last 2 weeks, how often have you been bothered by any of the following problems? 1. Little interest or pleasure in doing things: not at all 2. Feeling down, depressed, or hopeless: not at all 3. Trouble falling or staying asleep, or sleeping too much: not at all 4. Feeling tired or having little energy: not at all 5. Poor appetite or overeating: not at all 6. Feeling bad about yourself - or that you are a failure or have let yourself or your family down: not at all 7. Trouble concentrating on things, such as reading the newspaper or watching television: not at all 8. Moving or speaking so slowly that other people could have noticed. Or the opposite - being so fidgety or restless that you have been moving around a lot more than usual: not at all 9. Thoughts that you would be better off or of hurting yourself in some way: not at all Total score: 0 Depression Screening Interpretation: Negative Source: Developed by Drs. Chalo Connolly, Lianne Schmid, Benja Sun and colleagues, with an educational ling from [employer]. Thrive Questionnaire Date Thrive assessed: 01/24/23 I am a: Patient What is your living situation today?: I have a steady place to live Within the past 12 months, did the food you bought not last and you didn't have the money to get more?: Never true Within the past 12 months, did you worry whether your food would run out before you got money to buy more?: Never true Do you have trouble paying for medicines?: No Do you have trouble getting transportation to medical appointments?: No Do you have trouble paying your heating and electricity bill?: No Do you have trouble taking care of your child, family member or friend?: No Do you have trouble with day-to-day activities such as bathing, preparing meals, shopping, managing finances, etc.?: No Are you currently unemployed and looking for a job?: No Are you interested in more education?: No Currently or been in a relationship where the following occur: no concerns reported AUDIT C Alcohol Use Questionnaire (AUDIT-C) 1. How often do you have a drink containing alcohol?: Never Total Score: 0 ARINA-7 AMB Questionnaire ARINA-7 Date ARINA - 7 assessed: 01/24/23 Feeling nervous, anxious, or on edge: 0 = Not at all Not being able to stop or control worryin = Not at all Worrying too much about different things: 0 = Not at all Trouble relaxin = Not at all Being so restless that it is hard to sit still: 0 = Not at all Becoming easily annoyed or irritable: 0 = Not at all Feeling afraid as if something awful might happen: 0 = Not at all Total ARINA-7 score (0-4 normal; 5-9 mild; 10-14 moderate; 15-21 severe): 0 Source: Developed by Drs. Chalo Connolly, Lianne Schmid, Benja Sun and colleagues, with an educational ling from [employer]. Review of Systems Const Denies headache(s) Eyes Denies loss of vision ENT Denies vertigo, Denies dizziness, Denies headache(s) and Denies sore throat Card Denies chest pain, Denies leg edema and Denies lightheadedness Resp Denies cough, Denies hemoptysis and Denies wheezing GI Denies abdominal pain, Denies melena, Denies constipation, Denies diarrhea and Denies vomiting Denies urinary frequency, Denies dysuria and Denies urinary urgency Musc Reports arthralgias, Reports joint swelling, Denies numbness and Denies tingling Neuro Denies Abnormal speech present, Denies behavioral changes, Denies vertigo, Denies dizziness, Denies headache(s), Denies loss of vision, Denies memory loss, Denies numbness and Denies tingling Psych Denies anxiety, Denies behavioral changes, Denies depression, Denies memory loss and Denies panic attacks John/Lymph Denies easy bleeding and Denies easy bruising Aller/Immun Denies wheezing Physical exam (Primary Care) BMI result Body Mass Index 22.9 Tobacco/Smoking Status: Tobacco use Status Patient Tobacco Use Status Never used Tobacco 01/24/23 11:25 PHQ-9: PHQ-9 Score PHQ-9: Total score 0 01/24/23 11:25 Depression Screening Interpretation: Negative Thrive Assessment: Date of Thrive Assessment Date Thrive assessed 01/24/23 01/24/23 11:25 Currently or been in a relationship where the following occur: no concerns reported Const General: healthy appearing, no acute distress, alert and awake Nutritional Appearance: well nourished Orientation/consciousness: oriented to person, oriented to place and oriented to time HENMT Ears: TM's normal bilaterally General nose exam: Normal nasal mucous membranes and turbinates present Eyes Conjunctivae: conjunctivae normal Sclerae: sclerae normal Pupils: Equal, round and reactive pupils present Neck Neck: Yes no lymphadenopathy and Yes no JVD Thyroid: Thyroid normal Carotids: no bruits Resp Effort & Inspection: normal respiratory effort and not tachypneic Auscultation: no crackles, no rales, no rhonchi and no wheezes Cardio Rate: regular rate Rhythm: regular rhythm Heart sounds: no murmurs and normal S1 and S2 GI Palpation (GI): Soft to palpation, nontender, no hepatomegaly and no splenomegaly Auscultation: normal bowel sounds Skin General skin exam: no rashes or lesions noted and dry skin Neuro General: oriented to person, oriented to place and oriented to time Cranial nerves: Yes Equal, round and reactive pupils present Speech: No Abnormal speech present Gait exam (Neuro): Normal gait present Motor exam (neuro): no tremor noted Extrem Other: RIGHT HAND JOINT SWELLING. Right upper extremity: full ROM Left upper extremity: full ROM Right lower extremity: full ROM; no edema Left lower extremity: full ROM; no edema Psych Mental Status: mental status grossly normal Speech and movement: Normal speech and movement present Affect: normal affect Attitude: cooperative Thought process: Normal thought process present Assessment and Plan Assessment & Plan (1) Seronegative rheumatoid arthritis: Comment: Dx 2013. 2013 methotrexate helpful but caused nausea so it was stopped. [id number] Arava tried but stopped due to hair loss and hand paresthesias. 2018 Xeljanz and hydroxychloroquine seem to be helpful. Patient discontinued them because she thought dietary measures would be helpful. Code(s): M06.00 - Rheumatoid arthritis without rheumatoid factor, unspecified site Plan: Patient now followed by Rheumatology. Has been advised to restart disease modifying drug Humira which she will be starting perhaps in the near future. (2) Abnormal uterine bleeding (AUB): Comment: Rheumatoid arthritis Code(s): N93.9 - Abnormal uterine and vaginal bleeding, unspecified (3) Anemia: Code(s): D64.9 - Anemia, unspecified Qualifiers: Anemia type: iron deficiency Iron deficiency anemia type: chronic blood loss Qualified Code(s): D50.0 - Iron deficiency anemia secondary to blood loss (chronic) Plan: Noted to a microcytic anemia likely secondary to dysfunctional uterine bleeding. Has been started on vitamins and iron has been feeling much better. Orders: Orders Vitamin B12 and Folate 4 Weeks D64.9 - Anemia, unspecified, E53.8 - Deficiency of other specified B group vitamins IRON PROFILE 4 Weeks D50.9 - Iron deficiency anemia, unspecified, D64.9 - Anemia, unspecified Complete Blood Count no Diff 4 Weeks D64.9 - Anemia, unspecified Coding Level of Care Code Est Pt Level 4 (75262) Diagnoses Seronegative rheumatoid arthritis M06.00 Abnormal uterine bleeding (AUB) N93.9 Anemia D50.0 Anemia type: iron deficiency Iron deficiency anemia type: chronic blood loss
[2023-01-24 11:27] VITALS: BP 120/72; PULSE 83; O2SAT 98; BMI 22.9
== END 2023-01-24 12:13 | disposition home or self-care (01) ==
PROVIDERS: PCP Physician Assistant; Visit Provider Physician Assistant
DX: M06.00 Rheumatoid arthritis without rheumatoid factor, unspecified site (principal); N93.9 Abnormal uterine and vaginal bleeding, unspecified; D50.0 Iron deficiency anemia secondary to blood loss (chronic)
CPT/HCPCS: 99214

== ENCOUNTER 2023-01-31 11:59 | Outpatient (AMB) | payer OTHER, SELFPAY ==
--- NOTE | 2023-01-31 12:22 | A.OFFVIS_ITS ---
Intake Vital Signs 01/31/23 12:25 Height 5 ft 2 in Weight 123 lb 7.342 oz BMI 22.6 BP 110/70 Intake Visit Reasons: EMB and lab results Allergies Cortisone Adverse Reaction (Intermediate, Uncoded 01/24/23 11:45) numbness left side of body HPI HPI Comments History of Present Illness Details The patient is presenting for follow-up to discuss the results of her abnormal uterine bleeding workup and options of treatment. The following workup was done.: H&H= .9, the patient has been on iron sulfate 325 mg p.o. q.d. TSH, prolactin, hCG, GC and chlamydia were negative. FSH/LH in the premenopausal range Co testing was done was negative. Mammogram done but results still pending Pelvic ultrasound showed the following: The uterus is anteverted, heterogeneous and measures 9.0 x 5.5 x 8.0 cm, volume 160.1 mL. No discrete fibroids identified. Endometrial echogenic with thickness of 1.5 cm. Complex 0.6 x 0.5 x 0.7 cm hypoechoic collection with irregular margins within the endometrium. Right ovary measures 3.1 x 2.0 x 2.2 cm, volume 7.14 mL. Right ovary is unremarkable. Left ovary measures 3.7 x 2.3 x 2.3 cm, volume 10.25 mm. Left ovarian 1.8 x 1.9 x 1.7 cm complex, hypoechoic, heterogeneous lesion. No internal vascularity is demonstrated. CA 125 within normal, CA 19-9 and CA still pending, MRI of pelvis ordered. [facility] Medical History Severe dysplasia of cervix JOSE positive Seronegative rheumatoid arthritis Surgical History History of dental surgery History of cataract surgery Family History Father Asthma COPD (chronic obstructive pulmonary disease) Diabetes Mother Arthritis Mental health disorder Sister Mental health disorder Brother Mental health disorder Social History Housing: Apartment Alcohol intake: current Alcohol intake frequency: holidays/special occasions only Alcohol type: wine Patient Tobacco Use Status: Never used Tobacco e-Cigarette/Vaping Use: Never Used Second Hand Smoke Exposure: No service: No Current occupational status: unemployed Cognitive needs: No Hearing needs: No Vision needs: Yes (glasses) Review of Systems Const All systems reviewed & are unremarkable except as noted in HPI and below Reports as per HPI and Reports no additional complaints GI Reports no additional complaints Reports no additional complaints Assessment & Plan Assessment & Plan (1) Complex ovarian cyst: Code(s): N83.299 - Other ovarian cyst, unspecified side Plan: Discussed with the patient the complex ovarian mass by Ultrasound. The differ ential diagnosis discussed with the patient includes the following but not limited to: benign and malignant gynecological and non-gynecological. . Recommended pelvic MRI , CA 125, CA 19 9 and CEA . CA 125 within normal, CA 19 9 and CEA are still pending. Discussed with the patient that CA 125 is a protein associated with epithelial ovarian malignancies, but also frequently expressed at lower levels by nonmalignant tissue. Elevation of CA 125 levels may occur in nonmalignant gynecologic conditions, and in non-gynecologic cancers, It is most useful in postmenopausal women and in identifying non mucinous epithelial cancer. The CA 125 level is elevated in 80% of patients with epithelial ovarian cancer but in only 50% of patients with stage I disease. The overall sensitivity of CA 125 testing in distinguishing benign from malignant adnexal masses reportedly ranges from 61% to 90%; discussed with the patient the specificity, positive predictive value and negative predictive value. MRI scheduled , instructions given the patient to schedule MRI follow-up appointment within 2 weeks. All questions answered, the patient verbalized understanding (2) Abnormal ultrasound of endometrium: Code(s): R93.5 - Abnormal findings on diagnostic imaging of other abdominal regions, including retroperitoneum Plan: Discussed with the patient the results of the ultrasound showing abnormal endometrium, recommended endometrial sampling , options of treatment were discussed with the patient including other office endometrial biopsy or hysteroscopy D&C possible polypectomy/myomectomy. MRI scheduled will check the endometrial finding and determine recommendation accordingly between EMB versus hysteroscopy possible polypectomy D&C. Instructions given the patient to schedule a MRI follow-up appointment was possible office EMB. Coding Level of Care Code Est Pt Level 3 (04055) Diagnoses Complex ovarian cyst N83.299 Abnormal ultrasound of endometrium R93.5
[2023-01-31 12:25] VITALS: BP 110/70; BMI 22.6
== END 2023-01-31 12:57 | disposition home or self-care (01) ==
PROVIDERS: PCP Physician Assistant; Visit Provider Obstetrics & Gynecology
DX: N83.299 Other ovarian cyst, unspecified side (principal); R93.5 Abnormal findings on diagnostic imaging of other abdominal regions, including retroperitoneum
CPT/HCPCS: 99213

== ENCOUNTER → 2023-01-31 11:59 | Outpatient (BNVA) | payer OTHER, SELFPAY | PROVIDERS: PCP Physician Assistant; Visit Provider Obstetrics & Gynecology | DX: N83.299 Other ovarian cyst, unspecified side (principal); R93.5 Abnormal findings on diagnostic imaging of other abdominal regions, including retroperitoneum | CPT/HCPCS: 99212 ==

== ENCOUNTER 2023-02-03 07:55 | Outpatient (REF) | payer OTHER, SELFPAY ==
--- NOTE | ~2023-02-03 | US_ITS ---
EXAMINATION: US DIAGNOSTIC ULTRASOUND BREAST, LEFT CLINICAL INFORMATION: Evaluate left axillary lymph nodes seen on screening exam. COMPARISON: Screening mammography 01/18/2023. TECHNIQUE: Ultrasound of the left axilla is performed with real-time wheeler scale imaging and color Doppler. FINDINGS: There is no focal suspicious finding. There is no solid mass, architectural abnormality, duct ectasia, or edema in the soft tissue planes. There are normal-appearing left axillary lymph nodes without significant cortical thickening, and with normal cristiano morphology and fatty hilum. No pathologic adenopathy. Results were discussed with the patient at time of visit. US/US breast LT limited mamm only IMPRESSION: Benign-appearing left axillary lymph nodes. Recommend the patient resume routine annual screening. ASSESSMENT: BI-RADS 2: Benign RECOMMENDATION: Routine annual mammography screening. This patient's information was entered into a reminder system with a target due date for their next mammogram.
== END 2023-02-03 07:56 | disposition home or self-care (01) ==
LOC: HO.MAMMO 07:55
PROVIDERS: Visit Provider Obstetrics & Gynecology
DX: N63.32 Unspecified lump in axillary tail of the left breast (principal)
CPT/HCPCS: 76642

== ENCOUNTER → 2023-02-03 08:00 | Outpatient (BNV) | payer OTHER, SELFPAY | PROVIDERS: Visit Provider Radiology Diagnostic Radiology | DX: R92.2 Inconclusive mammogram (principal) | CPT/HCPCS: 76882 ==

== ENCOUNTER 2023-02-21 09:43 | Outpatient (AMB) | payer MEDICARE, MEDICAID, SELFPAY ==
[2023-02-21 10:14] VITALS: BP 110/66; PULSE 67; RESP 17; O2SAT 100; BMI 22144.5
--- NOTE | 2023-02-21 10:14 | MHC.PC.OV ---
Vital Signs 02/21/23 10:14 Height 2 in Weight 126 lb BMI 90181.5 BP 110/66 Blood Pressure Location Lt brachial Position Sitting Respiration 17 Pulse 67 Pulse Source Pulse Oximeter Pulse Oximetry (%) 100 Oxygen Delivery Method Room Air Intake Visit Reasons: Cataract surgery 03/07 right eye Intake Note: Patient is here for a Pre-op for Cataract surgery of the right eye scheduled on 03/07 and then the left eye is scheduled for 03/23/23. 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 Required: No Accompanied by: Self / Same As Patient Allergies Cortisone Adverse Reaction (Intermediate, Uncoded 02/21/23 10:24) numbness left side of body Medication List - Last Reconciled 02/21/23 by Michele Melgoza PA-C biotin 2,500 mcg PO DAILY cholecalciferol (vitamin D3) 25 mcg PO DAILY ferrous fumarate 325 mg PO DAILY folic acid 0.4 mg PO DAILY ketorolac 0.5% 1 drp ophthalmic (eye) TID mecobalamin (vitamin B12) 1,000 mcg PO DAILY prednisone 5 mg PO BID pyridoxine (vitamin B6) 100 mg PO DAILY zinc gluconate 30 mg PO DAILY Tobacco use date assessed: 01/24/23 Dental Screening Dental Screen Date: 02/21/23 Did you have a dental visit in the last 12 months?: No Did you have a dental problem in the last 6 months where you did not have access to dental care?: No Was dental information given to patient?: Patient has dentist HPI Cataract surgery 03/07 right eye HPI Details Patient is a 47-year-old female here today for a preop visit. [facility] Patient has a past medical history significant for seronegative rheumatoid arthritis, dysfunctional uterine bleeding, iron deficiency anemia. .. Iron deficiency anemia: CBC has been trending in upper its direction since starting p.o. iron supplementation. Otherwise patient does not have history of CVA, [place], Congestive heart failure. Patient does not take any anticoagulation or anti-platelet therapy. .. CHRONIC MEDICAL CONDITIONS--> Rheumatoid arthritis: Patient followed by Rheumatology and continues on disease modifying drug Humira for the treatment of her rheumatoid arthritis. Recently had a flare in her rheumatoid arthritis requiring p.o. steroids for few weeks which drastically reduced her inflammation and pain. Has been found to iron deficiency anemia and has been started on vitamins including iron and has felt much better. .. 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 CA 125 was negative. Has follow-up OBGYN in near future discussed plan of care. Laboratory Tests 12/02/22 12/27/22 12/27/22 15:22 10:18 10:18 Hgb 9.2 L 10.0 L TSH 1.84 [facility] Medical History Severe dysplasia of cervix JOSE positive Seronegative rheumatoid arthritis Surgical History History of dental surgery History of cataract surgery Family History Father Asthma COPD (chronic obstructive pulmonary disease) Diabetes Mother Arthritis Mental health disorder Sister Mental health disorder Brother Mental health disorder Social History Housing: Apartment Alcohol intake: current Alcohol intake frequency: holidays/special occasions only Alcohol type: wine Patient Tobacco Use Status: Never used Tobacco e-Cigarette/Vaping Use: Never Used Second Hand Smoke Exposure: No service: No Current occupational status: unemployed Cognitive needs: No Hearing needs: No Vision needs: Yes (glasses) Questionnaire Thrive Questionnaire Date Thrive assessed: 01/24/23 ARINA-7 AMB Questionnaire ARINA-7 Date ARINA - 7 assessed: 01/24/23 Source: Developed by Drs. Chalo Connolly, Lianne Schmid, Benja Sun and colleagues, with an educational ling from [employer]. Review of Systems Const Denies headache(s) Eyes Denies loss of vision ENT Denies vertigo, Denies dizziness, Denies headache(s) and Denies sore throat Card Denies chest pain, Denies leg edema and Denies lightheadedness Resp Denies cough, Denies hemoptysis and Denies wheezing GI Denies abdominal pain, Denies melena, Denies constipation, Denies diarrhea and Denies vomiting Denies urinary frequency, Denies dysuria and Denies urinary urgency Musc Denies arthralgias, Denies joint swelling, Denies numbness and Denies tingling Neuro Denies Abnormal speech present, Denies behavioral changes, Denies vertigo, Denies dizziness, Denies headache(s), Denies loss of vision, Denies memory loss, Denies numbness and Denies tingling Psych Denies anxiety, Denies behavioral changes, Denies depression, Denies memory loss and Denies panic attacks John/Lymph Denies easy bleeding and Denies easy bruising Aller/Immun Denies wheezing Physical exam (Primary Care) Vital Signs: Last Vital Signs Pulse 67 02/21/23 10:14 Resp 17 02/21/23 10:14 BP 110/66 02/21/23 10:14 Pulse Ox 100 02/21/23 10:14 Oxygen Delivery Method Room Air 02/21/23 10:14 BMI result Body Mass Index 40909.5 Tobacco/Smoking Status: Tobacco use Status Tobacco use date assessed 01/24/23 02/21/23 10:16 Patient Tobacco Use Status Never used Tobacco 02/21/23 10:16 e-Cigarette/Vaping Use Never Used 02/21/23 10:16 Thrive Assessment: Date of Thrive Assessment Date Thrive assessed 01/24/23 02/21/23 10:16 Const General: healthy appearing, no acute distress, alert and awake Nutritional Appearance: well nourished Orientation/consciousness: oriented to person, oriented to place and oriented to time HENMT Ears: TM's normal bilaterally General nose exam: Normal nasal mucous membranes and turbinates present Eyes Conjunctivae: conjunctivae normal Sclerae: sclerae normal Pupils: Equal, round and reactive pupils present Neck Neck: Yes no lymphadenopathy and Yes no JVD Thyroid: Thyroid normal Carotids: no bruits Resp Effort & Inspection: normal respiratory effort and not tachypneic Auscultation: no crackles, no rales, no rhonchi and no wheezes Cardio Rate: regular rate Rhythm: regular rhythm Heart sounds: no murmurs and normal S1 and S2 GI Palpation (GI): Soft to palpation, nontender, no hepatomegaly and no splenomegaly Auscultation: normal bowel sounds Skin General skin exam: no rashes or lesions noted and dry skin Neuro General: oriented to person, oriented to place and oriented to time Cranial nerves: Yes Equal, round and reactive pupils present Speech: No Abnormal speech present Gait exam (Neuro): Normal gait present Motor exam (neuro): no tremor noted Extrem Right upper extremity: full ROM Left upper extremity: full ROM Right lower extremity: full ROM; no edema Left lower extremity: full ROM; no edema Psych Mental Status: mental status grossly normal Speech and movement: Normal speech and movement present Affect: normal affect Attitude: cooperative Thought process: Normal thought process present Assessment and Plan Assessment & Plan (1) Pre-op evaluation: Code(s): Z01.818 - Encounter for other preprocedural examination Plan: Patient's vitals and most recent labs have been stable. Patient is medically clear for needed bilateral cataract removal. (2) Cataract, left eye: Code(s): H26.9 - Unspecified cataract Qualifiers: Cataract type: drug-induced Qualified Code(s): H26.32 - Drug-induced cataract, left eye Plan: Due for cataract removal as above (3) Seronegative rheumatoid arthritis: Comment: Dx 2013. 2013 methotrexate helpful but caused nausea so it was stopped. [id number] Arava tried but stopped due to hair loss and hand paresthesias. 2018 Xeljanz and hydroxychloroquine seem to be helpful. Patient discontinued them because she thought dietary measures would be helpful. Code(s): M06.00 - Rheumatoid arthritis without rheumatoid factor, unspecified site Plan: Continues to follow rheumatology. Has fairly severe rheumatoid arthritis that at times causes severe disability. 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 Coding Level of Care Code Est Pt Level 3 (90297) Diagnoses Pre-op evaluation Z01.818 Cataract of left eye due to drug H26.32 Cataract type: drug-induced Seronegative rheumatoid arthritis M06.00
== END 2023-02-21 10:35 | disposition home or self-care (01) ==
PROVIDERS: Visit Provider Physician Assistant
DX: Z01.818 Encounter for other preprocedural examination (principal); H26.32 Drug-induced cataract, left eye; M06.00 Rheumatoid arthritis without rheumatoid factor, unspecified site
CPT/HCPCS: 99213

== ENCOUNTER 2023-03-20 16:31 | Outpatient (REF) | payer MEDICARE, MEDICAID, SELFPAY ==
--- NOTE | ~2023-03-20 | MR_ITS ---
EXAMINATION: MR PELVIS WITHOUT AND WITH CONTRAST CLINICAL INFORMATION: Complex left ovarian mass lesion and endometrial complex cystic focus found on ultrasound of the pelvis COMPARISON: Ultrasound examination of pelvis on 12/30/2022 TECHNIQUE: Examination was performed in a high field strength MRI scanner. Pre-contrast multiplanar multisequence MR imaging of the pelvis was performed without IV contrast enhancement. Post-contrast axial T1 weighted fat suppressed images of the pelvis were obtained after IV injection of 6 mL Gadavist. FINDINGS: Uterus is anteverted. Endometrial stripe is normal in thickness, measuring 6.6 mm. T2 hyperintense nonenhancing cystic lesions are seen in upper posterior subendometrial uterus, could be within the junctional zone or superficial myometrium, measuring up to 0.3 cm in diameter. Multiple Nabothian cysts are seen in the uterine cervix. Left ovary is seen in left lateral pelvic cavity, measuring 2.6 cm in AP diameter, 2.0 cm in width, 2.8 cm in vertical height, containing multiple T2 hyperintense normal follicles. A septated rim-enhancing posterior left ovarian lesion is seen measuring 2.0 x 1.7 cm in size (1.8 x 1.9 cm on ultrasound examination), series 9 image #17. The right ovary is seen in anterior right pelvic cavity measuring 1.8 cm in AP diameter, 1.4 cm in width, 2.4 cm in vertical height, containing tiny T2 hyperintense normal follicles. Urinary bladder is well filled with urine. Pelvic fat plane is clean. No pelvic ascites is seen. No abnormally enlarged iliac or inguinal lymph nodes are found. The pelvis and bilateral hips are intact. Bilateral femoral heads and necks show normal signal without focal lesion. No abnormal joint effusion can be seen. The visualized bony pelvis show normal signal. Bilateral sacroiliac joints also appear unremarkable. 2 prominent Tarlov cysts are seen in the upper sacral canal at S2 level with a larger cyst measuring 0.9 cm in AP diameter, 1.4 cm in width, 1.3 cm in vertical height. MR/MR pelvis wo/w con IMPRESSION: 1. Findings are suggestive of upper posterior uterine regional adenomyosis. 2. Multiloculated septated rim-enhancing left ovarian cyst measuring 2.0 cm in size is seen, consistent with O-RADS category 3 lesion with low cancer risk, positive predictive value for malignancy about 5%. 3. Incidental finding of upper sacral canal Tarlov cysts, compressing the sacral nerve roots.
[2023-03-20] MEDS: gadobutroL 7.5 ML VIAL IVPUSH (17:35)
== END 2023-03-20 16:32 | disposition home or self-care (01) ==
LOC: HO.MRI 16:31
PROVIDERS: Visit Provider Obstetrics & Gynecology
DX: N83.299 Other ovarian cyst, unspecified side (principal)
CPT/HCPCS: 72197; A9585

== ENCOUNTER 2023-03-28 13:08 | Outpatient (REF) | payer MEDICARE, MEDICAID, SELFPAY ==
[2023-03-28 13:55] LABS: Hematocrit 34.1 % (37.0-47.0); Hemoglobin 10.7 g/dl (12.0-16.0); Mean Corpuscular HGB Conc 31.4 g/dl (31.0-35.0); Mean Corpuscular Hemoglobin 25.2 pg (27.0-33.0); Mean Corpuscular Volume 80.2 fL (80.0-98.0); Mean Platelet Volume 10.8 fL (9.4-12.3); Platelet Count 267 X10*3/uL (160-400); Red Blood Count 4.25 X10*6/uL (4.20-5.50); Red Cell Distribution Width 15.4 % (11.0-16.0); White Blood Count 5.6 X10*3/uL (4.8-10.8)
[2023-03-28 14:21] LABS: C Reactive Protein 0.82 mg/dL (< or = 0.50); Iron 44 mcg/dL (30-160); Percent Iron Saturation 16 % (15-50); Total Iron Binding Capacity 273 mcg/dL (228-428); Unsaturated Iron Binding 229 ug/dL
[2023-03-28 14:46] LABS: Erythrocyte Sedimentation Rate 42 MM/HR (0-20)
[2023-03-28 14:54] LABS: Folate 14.1 ng/mL (> or = 4.0); Vitamin B12 554 pg/mL (200-900)
== END 2023-03-28 13:09 | disposition home or self-care (01) ==
LOC: HO.LAB 13:08
PROVIDERS: Internal Medicine Rheumatology; PCP Physician Assistant; Visit Provider Obstetrics & Gynecology
DX: M06.00 Rheumatoid arthritis without rheumatoid factor, unspecified site (principal); D50.9 Iron deficiency anemia, unspecified; E53.8 Deficiency of other specified B group vitamins; D64.9 Anemia, unspecified
CPT/HCPCS: 36415; 82607; 82746; 83540; 85027; 85652; 86140

== ENCOUNTER 2023-04-06 14:43 | Outpatient (AMB) | payer MEDICARE, MEDICAID, SELFPAY ==
--- NOTE | 2023-04-06 14:54 | A.OFFVIS_ITS ---
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 CA 125, CA 19-9, CEA not done yet. Pelvic MRI showed the following: IMPRESSION: 1. Findings are suggestive of upper post erior uterine regional adenomyosis. 2. Multiloculated septated rim-enhancing left ovarian cyst measuring 2.0 cm in size is seen, consistent with O-RADS category 3 lesion with low cancer risk, positive predictive value for malignancy about 5%. 3. Incidental finding of upper sacral ca nal Tarlov cysts, compressing the sacral nerve roots. [facility] Medical History Severe dysplasia of cervix JOSE positive Seronegative rheumatoid arthritis Surgical History History of dental surgery History of cataract surgery Family History Father Asthma COPD (chronic obstructive pulmonary disease) Diabetes Mother Arthritis Mental health disorder Sister Mental health disorder Brother Mental health disorder Social History Housing: Apartment Alcohol intake: current Alcohol intake frequency: holidays/special occasions only Alcohol type: wine Patient Tobacco Use Status: Never used Tobacco e-Cigarette/Vaping Use: Never Used Second Hand Smoke Exposure: No service: No Current occupational status: unemployed Cognitive needs: No Hearing needs: No Vision needs: Yes (glasses) Female Reproductive History Menstrual Date of last menstrual period: 03/31/23 Review of Systems Const All systems reviewed & are unremarkable except as noted in HPI and below Reports as per HPI and Reports no additional complaints GI Reports no additional complaints Reports no additional complaints Office Procedures Endometrial Biopsy Details: The patient was counseled regarding the indication and benefits of endometrial sampling to rule out endometrial pathology including not limited to endometrial hyperplasia or endometrial cancer and others; The alternatives (Either do nothing vs. hysteroscopy D&C) & the risks were discussed with the patient including but not limited: pain, uterine perforation, bleeding, infection, possible injury to bladder, bowel, ureter, possible need for blood transfusion with all its possible risks. The patient verbalized understanding all questions answered and signed consent. Urine test done in the office was negative The patient was placed into the dorsal lithotomy position; a speculum was inserted in the vagina. Using aseptic technique for the procedure, the cervix was cleansed with Betadine. The anterior lip of the cervix was grasped with a single tooth tenaculum. The uterus was sounded to 7 cm with a 4 mm Pipelle was used. Tissues samples were obtained and placed in formalin, in a patient labeled container and sent to the pathology department. At the end of the procedure, there was minimal bleeding noted The patient tolerated the procedure well and was discharged in good condition with the following instructions: Nothing in the vagina until the bleeding stops. No sex until the bleeding stops, to call if any of the following occurs: fever (>100.4), flu-like symptoms, abdominal pain, heavy bleeding, four smelling vaginal discharge. The patient was instructed to schedule a Follow up appointment in 2 weeks to discuss pathology results of the biopsy and treatment options. This note was generated with a voice recognition program. Some errors may have been overlooked during the review of this note. Sometimes these errors may affect the content or meaning of a given sentence. [id number] Biopsy Assessment & Plan Assessment & Plan (1) Complex ovarian cyst: Comment: O-RADS category 3 by MRI Code(s): N83.299 - Other ovarian cyst, unspecified side Plan: Instructed the patient to have her CA 125, CEA and CA 19-9 done as soon as possible. Discussed with the patient the finding on MRI showing a left ovarian cyst measuring 2.0 cm in size is seen, consistent with O-RADS category 3 lesion , risk of malignancy between 1-10%. The differential diagnosis discussed with the patient includes the following but not limited to: benign and malignant gynecological and non-gynecological. Recommended to proceed with laparoscopic ovarian cystectomy/possible oophorectomy. Informed the patient that there is no gynecologic oncologist available on staff at [facility] , therefore the patient will be referred to an OBGYN practice at [facility] where during surgery there is immediate access to a gynecologic oncologist intraoperatively in case there was any suspicion or evidence of malignancy, [facility]. The patient verbalized understanding and agreed with the plan. (2) Tarlov cyst: Code(s): G96.191 - Perineural cyst Plan: Explained to the patient the finding on MRI showing a Tarlov cyst, recommended to contact her PCP for further management. All questions answered the patient verbalized understanding (3) Abnormal uterine bleeding (AUB): Code(s): N93.9 - Abnormal uterine and vaginal bleeding, unspecified Plan: EMB done, see procedure note. Instructions given the patient to schedule appointment within 3 days to discuss different options of treatment and the results the pathology Orders: Orders AMB Endometrial Biopsy Today N93.9 - Abnormal uterine and vaginal bleeding, unspecified Coding Level of Care Code Est Pt Level 3 (60747) Procedure Only Diagnoses Complex ovarian cyst N83.299 Tarlov cyst G96.191 Abnormal uterine bleeding (AUB) N93.9 CPT Codes Endometrial Biopsy - CPT: 78335-Cbwkzcoplsg Biopsy ([id number])
[2023-04-06 15:05] VITALS: BP 110/64; BMI 23.0
== END 2023-04-06 16:03 | disposition home or self-care (01) ==
PROVIDERS: Visit Provider Obstetrics & Gynecology
DX: N83.299 Other ovarian cyst, unspecified side (principal); G96.191 Perineural cyst; N93.9 Abnormal uterine and vaginal bleeding, unspecified
CPT/HCPCS: 58100; 99213

== ENCOUNTER 2023-04-06 14:43 | Outpatient (REF) | payer MEDICARE, MEDICAID, SELFPAY | END 2023-04-06 14:44 | disposition home or self-care (01) | LOC: HO.LNP 14:43 | PROVIDERS: Visit Provider Obstetrics & Gynecology | DX: Z13.89 Encounter for screening for other disorder (principal) | CPT/HCPCS: 58100; 99212 ==

== ENCOUNTER 2023-04-06 15:57 | Outpatient (REF) | payer MEDICARE, MEDICAID, SELFPAY ==
[2023-04-06 18:38] LABS: Carcinoembryonic Antigen < 1.73 ng/mL
[2023-04-10 11:18] LABS: CA-125 19 U/mL (<35)
[2023-04-10 11:53] LABS: Carbohydrate Antigen 19-9 21 U/mL (<34)
== END 2023-04-06 15:58 | disposition home or self-care (01) ==
LOC: HO.LAB 15:57
PROVIDERS: Visit Provider Obstetrics & Gynecology
DX: N83.299 Other ovarian cyst, unspecified side (principal)
CPT/HCPCS: 36415; 58100; 82378; 86301; 86304; 88305; 99212

== ENCOUNTER 2023-04-11 08:29 | Outpatient (AMB) | payer MEDICARE, MEDICAID, SELFPAY ==
--- NOTE | 2023-04-11 08:38 | A.OFFVIS_ITS ---
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 The following workup was done.: H&H= 10.7/34.1 TSH, FSH, prolactin hCG, GC and chlamydia were within normal/negative. Endometrial biopsy pathology showed proliferative endometrium with no evidence of hyperplasia and/or malignancy. Co testing was done was negative. Mammogram was BI-RADS 2 Pelvic ultrasound showed the following: The uterus is anteverted, heterogeneous and measures 9.0 x 5.5 x 8.0 cm, volume 160.1 mL. No discrete fibroids identified. Endometrial echogenic with thickness of 1.5 cm. Complex 0.6 x 0.5 x 0.7 cm hypoechoic collection with irregular margins within the endometrium. Right ovary measures 3.1 x 2.0 x 2.2 cm, volume 7.14 mL. Right ovary is unremarkable. Left ovary measures 3.7 x 2.3 x 2.3 cm, volume 10.25 mm. Left ovarian 1.8 x 1.9 x 1.7 cm complex, hypoechoic, heterogeneous lesion. No internal vascularity is demonstrated Pelvic MRI showed the following: IMPRESSION: 1. Findings are suggestive of upper post erior uterine regional adenomyosis. 2. Multiloculated septated rim-enhancing left ovarian cyst measuring 2.0 cm in size is seen, consistent with O-RADS category 3 lesion with low cancer risk, positive predictive value for malignancy about 5%. 3. Incidental finding of upper sacral ca nal Tarlov cysts, compressing the sacral nerve roots. CA 125, CEA and CA 19-9 were within normal [facility] Medical History Severe dysplasia of cervix JOSE positive Seronegative rheumatoid arthritis Surgical History History of dental surgery History of cataract surgery Family History Father Asthma COPD (chronic obstructive pulmonary disease) Diabetes Mother Arthritis Mental health disorder Sister Mental health disorder Brother Mental health disorder Social History Housing: Apartment Alcohol intake: current Alcohol intake frequency: holidays/special occasions only Alcohol type: wine Patient Tobacco Use Status: Never used Tobacco e-Cigarette/Vaping Use: Never Used Second Hand Smoke Exposure: No service: No Current occupational status: unemployed Cognitive needs: No Hearing needs: No Vision needs: Yes (glasses) Review of Systems Const All systems reviewed & are unremarkable except as noted in HPI and below Reports as per HPI and Reports no additional complaints GI Reports no additional complaints Reports no additional complaints Physical Exam Vital Signs: BMI result Body Mass Index 23.0 Assessment & Plan Assessment & Plan (1) Tarlov cyst: Code(s): G96.191 - Perineural cyst Plan: The patient contacted her PCP to discuss the finding on MRI showing Tarlov cyst and is in the process of being referred to a specialist regarding this finding. (2) Complex ovarian cyst: Comment: O-RADS category 3 by MRI Code(s): N83.299 - Other ovarian cyst, unspecified side Plan: Discussed the finding on MRI with the patient last visit cyst a few days ago with O- RADS category 3, risk of malignancy between 1-10%, recommended surgical management the patient was refer to [facility] for further management because of the availability of manager voice Onc on staff in case they are needed intraoperatively. (3) Abnormal uterine bleeding (AUB): Comment: With abnormal endometrial by ultrasound Code(s): N93.9 - Abnormal uterine and vaginal bleeding, unspecified Plan: Discussed with the patient the results of the work up done and options of treatment including Lysteda, cyclic progesterone, control pills, Mirena IUD, endometrial ablation and hysterectomy. All pros, cons, risks and benefits if each option was discussed with the patient and the patient is leaning more towards Mirena IUD versus p.o. cyclic progesterone . so a more detailed discussion about it was conducted including mechanism of action, risks (uterine perforation, infection, injury to bladder, bowel, displacement, and others) benefits (hypo menorrhea, amenorrhea, ...). GC/CT were taken and the patient was instructed to call back with her decision and if she decided to proceed with Mirena IUD to schedule Mirena IUD insertion on day 1-5 of next cycle . All questions answered, the patient verbalized understand Coding Level of Care Code Est Pt Level 3 (04980) Diagnoses Tarlov cyst G96.191 Complex ovarian cyst N83.299 Abnormal uterine bleeding (AUB) N93.9
[2023-04-11 08:41] VITALS: BP 108/66; BMI 23.0
== END 2023-04-11 09:20 | disposition home or self-care (01) ==
LOC: HO.HWS 08:29
PROVIDERS: PCP Physician Assistant; Visit Provider Obstetrics & Gynecology
DX: G96.191 Perineural cyst (principal); N83.299 Other ovarian cyst, unspecified side; N93.9 Abnormal uterine and vaginal bleeding, unspecified
CPT/HCPCS: 99213

== ENCOUNTER → 2023-04-11 08:29 | Outpatient (BNVA) | payer MEDICARE, MEDICAID, SELFPAY | PROVIDERS: PCP Physician Assistant; Visit Provider Obstetrics & Gynecology | DX: G96.191 Perineural cyst (principal); N93.9 Abnormal uterine and vaginal bleeding, unspecified; N83.299 Other ovarian cyst, unspecified side | CPT/HCPCS: 99212 ==

== ENCOUNTER 2023-10-12 13:10 | Outpatient (REF) | payer MEDICARE, MEDICAID, SELFPAY ==
[2023-10-12 14:57] LABS: MANUAL DIFF FLAG NO
[2023-10-12 15:12] LABS: Basophils Percent Auto 0.2 % (0-2); Eosinophils Percent Auto 0.8 % (0-4); Hematocrit 28.2 % (37.0-47.0); Hemoglobin 8.5 g/dl (12.0-16.0); Imm Gran Abs Auto 0.01 X10*3/uL (0.00-0.03); Imm Gran Pct Auto 0.2 % (0.0-0.4); Lymphocytes Absolute Auto 1.6 X10*3/uL (1.2-4.9); Mean Corpuscular HGB Conc 30.1 g/dl (31.0-35.0); Mean Corpuscular Hemoglobin 21.9 pg (27.0-33.0); Mean Corpuscular Volume 72.5 fL (80.0-98.0); Mean Platelet Volume 10.5 fL (9.4-12.3); Monocytes Absolute Auto 0.3 X10*3/uL (0.1-1.2); Monocytes Percent Auto 5.3 % (2-11); Neutrophils Absolute Auto 3.1 x10*3/uL (2.0-8.3); Neutrophils Percent Auto 61.5 % (45-73); Platelet Count 356 X10*3/uL (160-400); Red Blood Count 3.89 X10*6/uL (4.20-5.50); Red Cell Distribution Width 17.5 % (11.0-16.0); White Blood Count 5.1 X10*3/uL (4.8-10.8)
[2023-10-12 15:41] LABS: Alanine Aminotransferase 14 U/L (0-31); Albumin Level 3.6 g/dL (3.5-5.0); Alkaline Phosphatase 65 U/L (39-117); Anion Gap 10 (12-20); Aspartate Amino Transferase 18 U/L (5-31); Bilirubin Total 0.3 mg/dL (0.0-1.0); Blood Urea Nitrogen 8 mg/dL (9-16); Calcium 9.6 mg/dL (8.4-10.2); Carbon Dioxide 27 mmol/L (22-29); Chloride 106 mmol/L (96-108); Estimated Glomerular Filt Rate > 60; Glucose Random 84 mg/dL (60-115); Potassium 3.9 mmol/L (3.3-5.1); Sodium 139 mmol/L (135-145); Total Protein 8.9 g/dL (6.5-8.0)
[2023-10-12 15:57] LABS: Erythrocyte Sedimentation Rate 87 MM/HR (0-20)
== END 2023-10-12 13:11 | disposition home or self-care (01) ==
LOC: HO.LAB 13:10
PROVIDERS: Student in an Organized Health Care Education/Training Program; PCP Physician Assistant; Visit Provider Physician Assistant
DX: M06.00 Rheumatoid arthritis without rheumatoid factor, unspecified site (principal); G96.191 Perineural cyst
CPT/HCPCS: 36415; 80053; 85025; 85652; 86140; 99202

== ENCOUNTER 2023-10-12 13:10 | Outpatient (AMB) | payer MEDICARE, MEDICAID, SELFPAY ==
--- NOTE | 2023-10-12 13:15 | HO.SPINEOV ---
Intake Visit Reasons: perineural cyst Intake Note: Ms. Jones is here today c/o Low back pain/weakness in the legs. 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 This is a 48-year-old female with history of rheumatoid arthritis, untreated at this time, who presents for evaluation of symptoms encompassing her lower extremities described as feelings of pressure running down her legs into her feet with some difficulty getting up off a chair. She has a component of low back pain as well. She has been treating this with ibuprofen. Currently her insurance is not allowing her to get back onto Xeljanz to treat her rheumatoid arthritis so this is the only medication that she has been taking. The symptoms have been present since January of last year. It can be associated with feelings of her legs or feet swelling. There is no component of numbness. She does not describe any incontinence. Denies any numbness tingling in the upper extremities. She was sent today because of an incidental finding of Tarlov cysts in the sacrum. She does report problems walking, but primarily due to pain. Sitting down can give her the symptoms even more than standing and walking however. She has been doing physical therapy exercises at home. She has been through physical therapy in the past so is basically doing home PT program now for the last for 5 months. This does not seem to be helping. PMH: History of RA, as mentioned above at this time is untreated because insurance will not approve her Xeljanz. History of cataract surgery, cervix surgery. Social hx: She does not smoke, drink use any recreational drugs Medications: Ibuprofen Allergies: She had a reaction to a cortisone shot years ago that gave her numbness on the left side of her body. Physical exam: Worker or no acute distress, she has arthritic changes of her hands with enlarged and swollen joints. She may have some slight weakness of her hand grasps. It is difficult to tell because she can not close her hands all the way. The biceps triceps and deltoid strength is all normal. Lower extremity strength again limited secondary to some pain but in general is her strength seems full. Reflexes 2+ and symmetric at the patella Achilles biceps triceps brachioradialis. No Woods's, no clonus Imaging review: There is a pelvic MRI at [facility] showing small to medium size Tarlov cysts around the S1-2 level in the spinal canal. Impression: 48-year-old female history of rheumatoid arthritis, untreated at this time secondary to insurance issues, presents for evaluation of a host of symptoms in her lower extremities including feelings of pressure down her legs, pain, back pain, difficulty walking because of pain in her feet, but also trouble sitting for any length of time. She was sent because of Tarlov cyst seen on her sacrum on a pelvic MRI but these are incidental and do not have anything to do with her current presentation of symptoms. I am going to order a lumbar MRI to evaluate if she has lumbar stenosis but because of the feelings of weakness and pain down her legs. Once that is completed, I will see her back in the office. Thank you for allowing us to care for your patient. The total time spent with this visit with this patient was 45 minutes reviewing history, physical exam, pelvic MRI imaging review, and implementation of treatment plan or further diagnostic testing Ag Cooper MD,PhD [facility] Coding Level of Care Code New Pt Level 4 (21883) Diagnoses Tarlov cyst G96.191
== END 2023-10-12 14:29 | disposition home or self-care (01) ==
PROVIDERS: PCP Physician Assistant; Referring Provider Physician Assistant; Visit Provider Physician Assistant
DX: G96.191 Perineural cyst (principal)
CPT/HCPCS: 99204

== ENCOUNTER 2023-11-21 10:47 | Outpatient (AMB) | payer MEDICARE, MEDICAID, SELFPAY ==
--- NOTE | 2023-11-21 10:48 | MHC.OFFVIS ---
Vital Signs 11/21/23 10:54 Height 5 ft 2 in Weight 113 lb 15.664 oz BMI 20.8 BP 102/64 Blood Pressure Location Lt brachial Position Sitting Respiration 16 Pulse 85 Pulse Source Pulse Oximeter Pulse Oximetry (%) 99 Oxygen Delivery Method Room Air Intake Visit Reasons: RA/CONFIRMED Intake Note: Patient presents for RA. Allergies Cortisone Adverse Reaction (Intermediate, Uncoded 10/12/23 13:25) numbness left side of body Medication List - Last Reconciled 11/21/23 by Thu Siddiqi MD cholecalciferol (vitamin D3) 25 mcg PO DAILY ferrous fumarate 325 mg PO DAILY ketorolac 0.5% 1 drp ophthalmic (eye) TID HPI Comments Details: This is a 48-year-old female with seronegative RA who presents for follow-up. She was last seen by Dr. Rodgers 12/2022. At that time Humira was approved patient did not start it due to denominational reasons. Due to denominational reasons, patient can not take any medications that may contain any blood products. Patient contacted the manufacture of IV to further inquire about this but unsuccessful. Patient has been without any DMARDs for about a year. She is doing much worse overall. She has multiple swollen and painful joints including her hands, her shoulders, her knees her ankles and feet. She has lost 10 lb unintentionally. Initial history by Dr. Lomax: Patient was diagnosed with inflammatory arthritis in 2007 after the of her son when she presented with polyarthralgia. At that time she was noted to have synovitis and elevated inflammatory markers however her serology was negative for rheumatoid arthritis. She was started on methotrexate at that time with approved in her symptoms but then it appears she stop taking the medication on her own. Her initial JOSE was negative but in 2009 she tested positive in a ratio of 1:80. Rest of her serology was negative with normal complements. She was also noted to have Raynaud's. X-ray of her hands showed periarticular osteopenia at the MCPs. Her medication was then changed to Arava 10 mg daily which improved her symptoms but then this was stopped in 2016. Devleoped Neuropathy with Arava which resolved once she stopped the Arava. Gets intermittant head pain at the top of her head. Patient reports a history of Raynaud's in her fingers and her toes. Denies any history of digital ulcers. Denies photosensitivity, sicca symptoms, oral and nasal ulcers. [facility] Medical History Severe dysplasia of cervix JOSE positive Seronegative rheumatoid arthritis Surgical History History of dental surgery History of cataract surgery Family History Father Asthma COPD (chronic obstructive pulmonary disease) Diabetes Mother Arthritis Mental health disorder Sister Mental health disorder Ulcerative colitis Brother Mental health disorder Social History Housing: Apartment Alcohol intake: current Alcohol intake frequency: holidays/special occasions only Alcohol type: wine Patient Tobacco Use Status: Never used Tobacco e-Cigarette/Vaping Use: Never Used Second Hand Smoke Exposure: No service: No Current occupational status: unemployed Cognitive needs: No Hearing needs: No Vision needs: Yes (glasses) Review of Systems Const Reports weight loss Musc Reports arthralgias, Reports joint swelling and Reports stiffness Physical Exam Vital Signs: Last Vital Signs Pulse 85 11/21/23 10:54 Resp 16 11/21/23 10:54 BP 102/64 11/21/23 10:54 Pulse Ox 99 11/21/23 10:54 Oxygen Delivery Method Room Air 11/21/23 10:54 BMI result Body Mass Index 20.8 Const General: cooperative, healthy appearing and comfortable Nutritional Appearance: average body habitus Orientation/consciousness: patient oriented x3 Limitations: no limitations HEENT Head: Yes normocephalic and Yes atraumatic Mouth: moist mucous membranes Resp Effort & Inspection: normal respiratory effort and able to speak in complete sentences Auscultation: clear to auscultation bilaterally Cardio Rate: regular rate Rhythm: regular rhythm GI Inspection: No distended Palpation (GI): Soft to palpation and nontender Skin Other: Livedo reticularis on knees Neuro General: patient oriented x3 Extrem Other: Bilateral wrist swelling and pain with flexion-extension, significantly limited bilateral wrist extension Multiple swollen MCPs, fingers, tender to palpation Significantly reduced bilateral 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 2013 MTX helpful but caused nausea so it was stopped. [id number] Arava tried but stopped due to hair loss and hand paresthesias, improved with discontinuation 2018 Xeljanz and hydroxychloroquine seem to be helpful. Patient discontinued them because she thought dietary measures would be helpful. 12/2022 Humria approved, didn't start due to denominational reasons Code(s): M06.00 - Rheumatoid arthritis without rheumatoid factor, unspecified site Category: Medical Plan: This is a 48-year-old female with seronegative RA who presents for follow-up. This is her 1st visit with me she used to follow-up with Dr. Rodgers. Patient is not on any DMARDs. After last visit, Humira was approved, patient did not start it due to denominational concerns. She can not use any medication that may contain any blood products. On exam patient has numerous swollen and tender joints. Continues to have active disease. Inflammatory markers significantly elevated. Will need to restart DMARDs. At this time patient could not tolerate methotrexate or leflunomide. Biologic DMARDs such as TNF inhibitors (adalimumab, etanercept, golimumab, Certolizumab, infliximab) Abatacept, interleukin 6 inhibitors (tocilizumab and Sarilumab), rituximab, would be contraindicated as those are biologic DMARDs and we will not be able to reliably confirm that no blood products are used in the manufacturing process. Patient can not use them due to denominational concerns ts DMARDs such as Xeljanz, Rinvoq and Olumiant. Are appropriate. Patient had a good response with Xeljanz before. We will start prior authorization for Xeljanz Check labs and x-rays today Follow-up in 2 months (2) JOSE positive: Code(s): R76.8 - Other specified abnormal immunological findings in serum Category: Medical Plan: Check further sub serologies Plan I spent 46 minutes reviewing patient's chart, evaluating patient, ordering diagnostic workup, counseling patient and documenting in the chart Orders: Orders Complement C4 Today M32.9 - Systemic lupus erythematosus, unspecified Erythrocyte Sedimentation Rate Today M32.9 - Systemic lupus erythematosus, unspecified Protein Creatinine Ratio, Ur Today M32.9 - Systemic lupus erythematosus, unspecified Beta-2 Glycoprotein Antibody Today R76.0 - Raised antibody titer Cardiolipin Antibodies Today R76.0 - Raised antibody titer Lupus Anticoagulant Panel Today R76.0 - Raised antibody titer Complete Blood Count Auto Diff Today M06.00 - Rheumatoid arthritis without rheumatoid factor, unspecified site Hepatitis A,B,C Profile Today Z11.59 - Encounter for screening for other viral diseases XR ankle LT min 3V Today M06.00 - Rheumatoid arthritis without rheumatoid factor, unspecified site XR hand wrist RT Today M06.00 - Rheumatoid arthritis without rheumatoid factor, unspecified site Anti Extractable Nuclear Ag Today M32.9 - Systemic lupus erythematosus, unspecified Anti DNA DS Antibody Today M32.9 - Systemic lupus erythematosus, unspecified Complement C3 Today M32.9 - Systemic lupus erythematosus, unspecified C Reactive Protein Today M32.9 - Systemic lupus erythematosus, unspecified DNA Double Stranded-Crithidia Today M32.9 - Systemic lupus erythematosus, unspecified Sjogren's Antibodies Today M32.9 - Systemic lupus erythematosus, unspecified UA w Microscopic Today M32.9 - Systemic lupus erythematosus, unspecified Comprehensive Met. Panel Today M06.00 - Rheumatoid arthritis without rheumatoid factor, unspecified site T Spot TB Today Z11.7 - Encounter for testing for latent tuberculosis infection XR ankle RT min 3V Today M06.00 - Rheumatoid arthritis without rheumatoid factor, unspecified site XR foot LT min 3V Today M06.00 - Rheumatoid arthritis without rheumatoid factor, unspecified site XR foot RT min 3V Today M06.00 - Rheumatoid arthritis without rheumatoid factor, unspecified site XR hand wrist LT Today M06.00 - Rheumatoid arthritis without rheumatoid factor, unspecified site XR knee standing BI Today M06.00 - Rheumatoid arthritis without rheumatoid factor, unspecified site Coding Level of Care Code Est Pt Level 4 (82164) Diagnoses Seronegative rheumatoid arthritis M06.00 JOSE positive R76.8
[2023-11-21 10:54] VITALS: BP 102/64; PULSE 85; RESP 16; O2SAT 99; BMI 20.8
== END 2023-11-21 11:19 | disposition home or self-care (01) ==
PROVIDERS: PCP Physician Assistant; Visit Provider Student in an Organized Health Care Education/Training Program
DX: M06.00 Rheumatoid arthritis without rheumatoid factor, unspecified site (principal); R76.8 Other specified abnormal immunological findings in serum
CPT/HCPCS: 99214

== ENCOUNTER 2023-11-21 11:33 | Outpatient (REF) | payer MEDICARE, MEDICAID, SELFPAY ==
--- NOTE | ~2023-11-21 | XR_ITS ---
EXAMINATION: X-RAY BILATERAL ANKLES X-RAY BILATERAL FEET X-RAY BILATERAL HANDS/WRISTS X-RAY BILATERAL KNEES CLINICAL INFORMATION: Rheumatoid arthritis without rheumatoid factor, lateral ankle film combined on lateral foot image. TECHNIQUE: 4 views of each hand/wrist. 4 views of each knee. 2 views of each ankle. 3 views of each foot. COMPARISON: 10/09/2018. FINDINGS: Right knee: No significant joint effusion. Tiny medial marginal and posterior patellar osteophytes. Mild narrowing of the medial compartment. Left knee: Trace joint effusion. Mild narrowing of the lateral compartment. Tiny lateral marginal and posterior patellar osteophytes. Right ankle/foot: Ankle mortise is preserved. Subtle cystic lucency in the distal right fibula. Mild degenerative changes with hypertrophic change at the talonavicular and tarsometatarsal joints. Left ankle/foot: Ankle mortise is preserved. Subtle area of lucency in the distal left fibula. Minimal degenerative changes with hypertrophic change at the talonavicular and tarsometatarsal joints. Right hand/wrist: Redemonstration of apparent erosions at the ulnar aspect of the fifth carpometacarpal joint, similar. Mild narrowing of the radiocarpal space. Mild degenerative changes in the first carpometacarpal joint with joint space narrowing and hypertrophic change. Mild demineralization of the carpi. Left hand/wrist: Mild demineralization of the carpi redemonstrated. No definitive erosions. Mild degenerative changes in the first carpometacarpal joint with joint space narrowing and hypertrophic change. Redemonstration of a cyst within the proximal left capitate. XR/XR ankle RT min 3V IMPRESSION: 1. Mild degenerative changes in the bilateral knees. 2. Mild degenerative changes in the bilateral ankles. 3. Redemonstration of erosions at the ulnar aspect of the right fifth carpometacarpal joint. 4. Mild demineralization of the carpi bilaterally.
--- NOTE | ~2023-11-21 | XR_ITS ---
EXAMINATION: X-RAY BILATERAL ANKLES X-RAY BILATERAL FEET X-RAY BILATERAL HANDS/WRISTS X-RAY BILATERAL KNEES CLINICAL INFORMATION: Rheumatoid arthritis without rheumatoid factor, lateral ankle film combined on lateral foot image. TECHNIQUE: 4 views of each hand/wrist. 4 views of each knee. 2 views of each ankle. 3 views of each foot. COMPARISON: 10/09/2018. FINDINGS: Right knee: No significant joint effusion. Tiny medial marginal and posterior patellar osteophytes. Mild narrowing of the medial compartment. Left knee: Trace joint effusion. Mild narrowing of the lateral compartment. Tiny lateral marginal and posterior patellar osteophytes. Right ankle/foot: Ankle mortise is preserved. Subtle cystic lucency in the distal right fibula. Mild degenerative changes with hypertrophic change at the talonavicular and tarsometatarsal joints. Left ankle/foot: Ankle mortise is preserved. Subtle area of lucency in the distal left fibula. Minimal degenerative changes with hypertrophic change at the talonavicular and tarsometatarsal joints. Right hand/wrist: Redemonstration of apparent erosions at the ulnar aspect of the fifth carpometacarpal joint, similar. Mild narrowing of the radiocarpal space. Mild degenerative changes in the first carpometacarpal joint with joint space narrowing and hypertrophic change. Mild demineralization of the carpi. Left hand/wrist: Mild demineralization of the carpi redemonstrated. No definitive erosions. Mild degenerative changes in the first carpometacarpal joint with joint space narrowing and hypertrophic change. Redemonstration of a cyst within the proximal left capitate. XR/XR knee LT 4V IMPRESSION: 1. Mild degenerative changes in the bilateral knees. 2. Mild degenerative changes in the bilateral ankles. 3. Redemonstration of erosions at the ulnar aspect of the right fifth carpometacarpal joint. 4. Mild demineralization of the carpi bilaterally.
--- NOTE | ~2023-11-21 | XR_ITS ---
EXAMINATION: X-RAY BILATERAL ANKLES X-RAY BILATERAL FEET X-RAY BILATERAL HANDS/WRISTS X-RAY BILATERAL KNEES CLINICAL INFORMATION: Rheumatoid arthritis without rheumatoid factor, lateral ankle film combined on lateral foot image. TECHNIQUE: 4 views of each hand/wrist. 4 views of each knee. 2 views of each ankle. 3 views of each foot. COMPARISON: 10/09/2018. FINDINGS: Right knee: No significant joint effusion. Tiny medial marginal and posterior patellar osteophytes. Mild narrowing of the medial compartment. Left knee: Trace joint effusion. Mild narrowing of the lateral compartment. Tiny lateral marginal and posterior patellar osteophytes. Right ankle/foot: Ankle mortise is preserved. Subtle cystic lucency in the distal right fibula. Mild degenerative changes with hypertrophic change at the talonavicular and tarsometatarsal joints. Left ankle/foot: Ankle mortise is preserved. Subtle area of lucency in the distal left fibula. Minimal degenerative changes with hypertrophic change at the talonavicular and tarsometatarsal joints. Right hand/wrist: Redemonstration of apparent erosions at the ulnar aspect of the fifth carpometacarpal joint, similar. Mild narrowing of the radiocarpal space. Mild degenerative changes in the first carpometacarpal joint with joint space narrowing and hypertrophic change. Mild demineralization of the carpi. Left hand/wrist: Mild demineralization of the carpi redemonstrated. No definitive erosions. Mild degenerative changes in the first carpometacarpal joint with joint space narrowing and hypertrophic change. Redemonstration of a cyst within the proximal left capitate. XR/XR knee RT 4V IMPRESSION: 1. Mild degenerative changes in the bilateral knees. 2. Mild degenerative changes in the bilateral ankles. 3. Redemonstration of erosions at the ulnar aspect of the right fifth carpometacarpal joint. 4. Mild demineralization of the carpi bilaterally.
--- NOTE | ~2023-11-21 | XR_ITS ---
EXAMINATION: X-RAY BILATERAL ANKLES X-RAY BILATERAL FEET X-RAY BILATERAL HANDS/WRISTS X-RAY BILATERAL KNEES CLINICAL INFORMATION: Rheumatoid arthritis without rheumatoid factor, lateral ankle film combined on lateral foot image. TECHNIQUE: 4 views of each hand/wrist. 4 views of each knee. 2 views of each ankle. 3 views of each foot. COMPARISON: 10/09/2018. FINDINGS: Right knee: No significant joint effusion. Tiny medial marginal and posterior patellar osteophytes. Mild narrowing of the medial compartment. Left knee: Trace joint effusion. Mild narrowing of the lateral compartment. Tiny lateral marginal and posterior patellar osteophytes. Right ankle/foot: Ankle mortise is preserved. Subtle cystic lucency in the distal right fibula. Mild degenerative changes with hypertrophic change at the talonavicular and tarsometatarsal joints. Left ankle/foot: Ankle mortise is preserved. Subtle area of lucency in the distal left fibula. Minimal degenerative changes with hypertrophic change at the talonavicular and tarsometatarsal joints. Right hand/wrist: Redemonstration of apparent erosions at the ulnar aspect of the fifth carpometacarpal joint, similar. Mild narrowing of the radiocarpal space. Mild degenerative changes in the first carpometacarpal joint with joint space narrowing and hypertrophic change. Mild demineralization of the carpi. Left hand/wrist: Mild demineralization of the carpi redemonstrated. No definitive erosions. Mild degenerative changes in the first carpometacarpal joint with joint space narrowing and hypertrophic change. Redemonstration of a cyst within the proximal left capitate. XR/XR ankle LT min 3V IMPRESSION: 1. Mild degenerative changes in the bilateral knees. 2. Mild degenerative changes in the bilateral ankles. 3. Redemonstration of erosions at the ulnar aspect of the right fifth carpometacarpal joint. 4. Mild demineralization of the carpi bilaterally.
--- NOTE | ~2023-11-21 | XR_ITS ---
EXAMINATION: X-RAY BILATERAL ANKLES X-RAY BILATERAL FEET X-RAY BILATERAL HANDS/WRISTS X-RAY BILATERAL KNEES CLINICAL INFORMATION: Rheumatoid arthritis without rheumatoid factor, lateral ankle film combined on lateral foot image. TECHNIQUE: 4 views of each hand/wrist. 4 views of each knee. 2 views of each ankle. 3 views of each foot. COMPARISON: 10/09/2018. FINDINGS: Right knee: No significant joint effusion. Tiny medial marginal and posterior patellar osteophytes. Mild narrowing of the medial compartment. Left knee: Trace joint effusion. Mild narrowing of the lateral compartment. Tiny lateral marginal and posterior patellar osteophytes. Right ankle/foot: Ankle mortise is preserved. Subtle cystic lucency in the distal right fibula. Mild degenerative changes with hypertrophic change at the talonavicular and tarsometatarsal joints. Left ankle/foot: Ankle mortise is preserved. Subtle area of lucency in the distal left fibula. Minimal degenerative changes with hypertrophic change at the talonavicular and tarsometatarsal joints. Right hand/wrist: Redemonstration of apparent erosions at the ulnar aspect of the fifth carpometacarpal joint, similar. Mild narrowing of the radiocarpal space. Mild degenerative changes in the first carpometacarpal joint with joint space narrowing and hypertrophic change. Mild demineralization of the carpi. Left hand/wrist: Mild demineralization of the carpi redemonstrated. No definitive erosions. Mild degenerative changes in the first carpometacarpal joint with joint space narrowing and hypertrophic change. Redemonstration of a cyst within the proximal left capitate. XR/XR hand wrist RT IMPRESSION: 1. Mild degenerative changes in the bilateral knees. 2. Mild degenerative changes in the bilateral ankles. 3. Redemonstration of erosions at the ulnar aspect of the right fifth carpometacarpal joint. 4. Mild demineralization of the carpi bilaterally.
--- NOTE | ~2023-11-21 | XR_ITS ---
EXAMINATION: X-RAY BILATERAL ANKLES X-RAY BILATERAL FEET X-RAY BILATERAL HANDS/WRISTS X-RAY BILATERAL KNEES CLINICAL INFORMATION: Rheumatoid arthritis without rheumatoid factor, lateral ankle film combined on lateral foot image. TECHNIQUE: 4 views of each hand/wrist. 4 views of each knee. 2 views of each ankle. 3 views of each foot. COMPARISON: 10/09/2018. FINDINGS: Right knee: No significant joint effusion. Tiny medial marginal and posterior patellar osteophytes. Mild narrowing of the medial compartment. Left knee: Trace joint effusion. Mild narrowing of the lateral compartment. Tiny lateral marginal and posterior patellar osteophytes. Right ankle/foot: Ankle mortise is preserved. Subtle cystic lucency in the distal right fibula. Mild degenerative changes with hypertrophic change at the talonavicular and tarsometatarsal joints. Left ankle/foot: Ankle mortise is preserved. Subtle area of lucency in the distal left fibula. Minimal degenerative changes with hypertrophic change at the talonavicular and tarsometatarsal joints. Right hand/wrist: Redemonstration of apparent erosions at the ulnar aspect of the fifth carpometacarpal joint, similar. Mild narrowing of the radiocarpal space. Mild degenerative changes in the first carpometacarpal joint with joint space narrowing and hypertrophic change. Mild demineralization of the carpi. Left hand/wrist: Mild demineralization of the carpi redemonstrated. No definitive erosions. Mild degenerative changes in the first carpometacarpal joint with joint space narrowing and hypertrophic change. Redemonstration of a cyst within the proximal left capitate. XR/XR hand wrist LT IMPRESSION: 1. Mild degenerative changes in the bilateral knees. 2. Mild degenerative changes in the bilateral ankles. 3. Redemonstration of erosions at the ulnar aspect of the right fifth carpometacarpal joint. 4. Mild demineralization of the carpi bilaterally.
--- NOTE | ~2023-11-21 | MR_ITS ---
EXAMINATION: MR LUMBAR SPINE WITHOUT CONTRAST CLINICAL INFORMATION: Sacral Tarlov cysts COMPARISON: MRI pelvis on 03/20/2023 TECHNIQUE: MRI of the lumbar spine was obtained using routine sequences without contrast. FINDINGS: The visualized lumbar vertebrae are intact with normal alignment. No focal bone lesion with abnormal signal can be seen. Evaluation of the intervertebral discs show: T12/L1: Intervertebral disc height is normal, with normal T2 signal. No focal disc herniation is seen. Bilateral T12/L1 neuroforamina are patent. Bilateral apophyseal joints are intact with normal alignment. L-1/L-2: Intervertebral disc height is normal, with normal T2 signal. No focal disc herniation is seen. Bilateral L1-L2 neuroforamina are patent. Bilateral apophyseal joints are intact with normal alignment. L2/L3: Intervertebral disc height is normal, with normal T2 signal. No focal disc herniation is seen. Bilateral L2-L3 neuroforamina are patent. Bilateral apophyseal joints are intact with normal alignment. L3/L4: Intervertebral disc height is normal, with normal T2 signal. No focal disc herniation is seen. Bilateral L3-L4 neuroforamina are patent. Bilateral apophyseal joints are intact with normal alignment. L4/L5: Intervertebral disc height is normal, with normal T2 signal. No focal disc herniation is seen. Bilateral L4-L5 neuroforamina are patent. Bilateral apophyseal joints are intact with normal alignment. L5/S1: Intervertebral disc height is normal, with normal T2 signal. No focal disc herniation is seen. Bilateral L5-S1 neuroforamina are patent. Bilateral apophyseal joints are intact with normal alignment. Conus medullaris is seen normally at L1-L2 junction level. At S2 level, a prominent left sacral canal Tarlov cyst is seen measuring 0.9 cm in AP diameter, 1.6 cm in vertical height. A much smaller right sacral canal Tarlov cyst measures 0.8 cm in diameter is also present, impinging the sacral nerve roots. MR/MR lumbar spine wo con IMPRESSION: 1. Normal MRI scan of the lumbar spine. No focal lumbar disc herniation, spinal stenosis, spinal cord or nerve root compression can be seen. 2. 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
[2023-11-21 12:05] LABS: MANUAL DIFF FLAG NO
[2023-11-21 12:45] LABS: Basophils Percent Auto 0.2 % (0-2); Eosinophils Percent Auto 0.7 % (0-4); Hematocrit 29.7 % (37.0-47.0); Hemoglobin 8.9 g/dl (12.0-16.0); Imm Gran Abs Auto 0.02 X10*3/uL (0.00-0.03); Imm Gran Pct Auto 0.5 % (0.0-0.4); Lymphocytes Absolute Auto 1.4 X10*3/uL (1.2-4.9); Lymphocytes Percent Auto 31.5 % (20-40); Mean Corpuscular Hemoglobin 21.8 pg (27.0-33.0); Mean Corpuscular Volume 72.6 fL (80.0-98.0); Mean Platelet Volume 10.7 fL (9.4-12.3); Monocytes Absolute Auto 0.3 X10*3/uL (0.1-1.2); Monocytes Percent Auto 6.4 % (2-11); Neutrophils Absolute Auto 2.6 x10*3/uL (2.0-8.3); Neutrophils Percent Auto 60.7 % (45-73); Platelet Count 316 X10*3/uL (160-400); Red Blood Count 4.09 X10*6/uL (4.20-5.50); Red Cell Distribution Width 21.2 % (11.0-16.0); White Blood Count 4.4 X10*3/uL (4.8-10.8)
[2023-11-21 12:51] LABS: Appearance Urine Clear; Color Urine Yellow; Glucose Urine UA Negative (Negative); Leukocyte Esterase Urine Trace (Negative); Nitrite Urine Negative (Negative); PH 6.5 (5.0-9.0); Specific Gravity - Urine <= 1.005 (1.005-1.025); UMIC TRIGGER UA YES; Urine Blood Negative (Negative); Urine Ketones Negative (Negative); Urine Protein Negative (Neg-Trace)
[2023-11-21 13:05] LABS: Bacteria Urine Trace (None Seen); Hyaline Casts Urine 0-2 /LPF (0-2); RBC Urine 0-2 /HPF (0-2); WBC Urine 0-5 /HPF (0-5)
[2023-11-21 13:19] LABS: Alanine Aminotransferase 9 U/L (0-31); Albumin Level 3.6 g/dL (3.5-5.0); Alkaline Phosphatase 64 U/L (39-117); Anion Gap 11 (12-20); Aspartate Amino Transferase 14 U/L (5-31); Bilirubin Total 0.3 mg/dL (0.0-1.0); Blood Urea Nitrogen 8 mg/dL (9-16); C Reactive Protein 2.25 mg/dL (< or = 0.50); Calcium 9.3 mg/dL (8.4-10.2); Carbon Dioxide 26 mmol/L (22-29); Chloride 106 mmol/L (96-108); Estimated Glomerular Filt Rate > 60; Glucose Random 77 mg/dL (60-115); Potassium 3.7 mmol/L (3.3-5.1); Sodium 139 mmol/L (135-145); Total Protein 8.8 g/dL (6.5-8.0)
[2023-11-21 13:24] LABS: Creatinine Urine 44.65 mg/dL; Total Protein Urine Random < 7 mg/dL (<12)
[2023-11-21 13:28] LABS: Erythrocyte Sedimentation Rate 61 MM/HR (0-20)
[2023-11-21 15:34] LABS: HBc Num1 0.12 S/CO (0.00-0.79); Hepatitis A Antibody IgM 0.24 Index (0-0.79); Hepatitis B Core Antibody Nonreactive (Nonreactive); Hepatitis B Surface Antigen Negative (Negative); ~HepC Num1 0.18 S/CO (0.00-0.79); ~Hepatitis A Antibody IgM Nonreactive (Nonreactive); ~Hepatitis B Surface Antibody REACTIVE (Nonreactive); ~Hepatitis C Antibody Nonreactive (Nonreactive)
[2023-11-22 23:44] LABS: Anti DNA DS Antibody 8 IU/mL; Antibody to SS-A Antigen <1.0 NEG AI (<1.0 NEG); Antibody to SS-B Antigen <1.0 NEG AI (<1.0 NEG); Cardiolipin IgG Ab <2.0 GPL-U/mL; Cardiolipin IgM Ab <2.0 MPL-U/mL; SM/Ribonucleoprotein Ab <1.0 NEG AI (<1.0 NEG); Smith Protein <1.0 NEG AI (<1.0 NEG)
[2023-11-23 20:39] LABS: TS Negative Control Passed; TS Panel A 0; TS Panel B 0; TS Positive Control Passed; TSpotTB Negative (Negative)
[2023-11-25 00:54] LABS: Complement C3 142 mg/dL (83-193)
[2023-11-27 15:42] LABS: Beta-2 Glycoprotein IgG <2.0 U/mL (<20.0); Beta-2 Glycoprotein IgM <2.0 U/mL (<20.0)
[2023-11-29 05:08] LABS: PTT (LAC) Screen 40 sec (<=40)
[2023-12-01 14:44] LABS: DNAds, Crithidia Antibody Positive (Negative)
== END 2023-11-21 11:34 | disposition home or self-care (01) ==
LOC: HO.MRI 11:33
PROVIDERS: Absent Provider Student in an Organized Health Care Education/Training Program; PCP Physician Assistant; Visit Provider Physician Assistant
DX: Z11.7 Encounter for testing for latent tuberculosis infection (principal); Z11.59 Encounter for screening for other viral diseases; R76.0 Raised antibody titer; M32.9 Systemic lupus erythematosus, unspecified; M06.00 Rheumatoid arthritis without rheumatoid factor, unspecified site; G96.191 Perineural cyst; Z72.89 Other problems related to lifestyle
CPT/HCPCS: 36415; 72148; 73110; 73130; 73564; 73610; 73630; 80053; 81001; 82570; 84156; 85025; 85597; 85598; 85613; 85652; 85730; 86140; 86146; 86147; 86160; 86225; 86235; 86255; 86481; 86704; 86706; 86709; 86803; 87340; 99212

== ENCOUNTER 2024-02-20 13:51 | Outpatient (REF) | payer MEDICARE, MEDICAID, SELFPAY ==
[2024-02-20 14:07] LABS: MANUAL DIFF FLAG NO
[2024-02-20 14:37] LABS: Basophils Percent Auto 0.2 % (0-2); Eosinophils Percent Auto 0.6 % (0-4); Hematocrit 35.5 % (37.0-47.0); Hemoglobin 11.1 g/dl (12.0-16.0); Imm Gran Abs Auto 0.01 X10*3/uL (0.00-0.03); Imm Gran Pct Auto 0.2 % (0.0-0.4); Lymphocytes Absolute Auto 1.7 X10*3/uL (1.2-4.9); Lymphocytes Percent Auto 36.6 % (20-40); Mean Corpuscular HGB Conc 31.3 g/dl (31.0-35.0); Mean Corpuscular Hemoglobin 24.8 pg (27.0-33.0); Mean Corpuscular Volume 79.4 fL (80.0-98.0); Mean Platelet Volume 10.5 fL (9.4-12.3); Monocytes Absolute Auto 0.3 X10*3/uL (0.1-1.2); Monocytes Percent Auto 6.9 % (2-11); Neutrophils Absolute Auto 2.6 x10*3/uL (2.0-8.3); Neutrophils Percent Auto 55.5 % (45-73); Platelet Count 234 X10*3/uL (160-400); Red Blood Count 4.47 X10*6/uL (4.20-5.50); Red Cell Distribution Width 18.5 % (11.0-16.0); White Blood Count 4.8 X10*3/uL (4.8-10.8)
[2024-02-20 15:02] LABS: Alanine Aminotransferase 9 U/L (0-31); Albumin Level 4.2 g/dL (3.5-5.0); Alkaline Phosphatase 64 U/L (39-117); Anion Gap 11 (12-20); Aspartate Amino Transferase 13 U/L (5-31); Bilirubin Total 0.4 mg/dL (0.0-1.0); Blood Urea Nitrogen 9 mg/dL (9-16); C Reactive Protein 0.27 mg/dL (< or = 0.50); Calcium 9.1 mg/dL (8.4-10.2); Carbon Dioxide 25 mmol/L (22-29); Chloride 107 mmol/L (96-108); Estimated Glomerular Filt Rate > 60; Glucose Random 108 mg/dL (60-115); Potassium 3.8 mmol/L (3.3-5.1); Sodium 139 mmol/L (135-145); Total Protein 8.7 g/dL (6.5-8.0)
[2024-02-20 15:17] LABS: Erythrocyte Sedimentation Rate 36 MM/HR (0-20)
== END 2024-02-20 13:52 | disposition home or self-care (01) ==
LOC: HO.LAB 13:51
PROVIDERS: PCP Physician Assistant; Visit Provider Student in an Organized Health Care Education/Training Program
DX: M06.00 Rheumatoid arthritis without rheumatoid factor, unspecified site (principal); Z79.60 Long term (current) use of unspecified immunomodulators and immunosuppressants
CPT/HCPCS: 36415; 80053; 85025; 85652; 86140

== ENCOUNTER 2024-02-21 13:15 | Outpatient (AMB) | payer MEDICARE, MEDICAID, SELFPAY ==
--- NOTE | 2024-02-21 13:28 | MHC.OFFVIS ---
Vital Signs 02/21/24 13:32 Height 5 ft 2 in Weight 118 lb 13.266 oz BMI 21.7 BP 94/62 Blood Pressure Location Rt brachial Position Sitting Pulse 70 Pulse Source Pulse Oximeter Pulse Oximetry (%) 100 Oxygen Delivery Method Room Air Intake Visit Reasons: RA Intake Note: Patient presents for RA. Allergies Cortisone Adverse Reaction (Intermediate, Uncoded 10/12/23 13:25) numbness left side of body Medication List - Last Reconciled 02/21/24 by Thu Siddiqi MD cholecalciferol (vitamin D3) 25 mcg PO DAILY ferrous fumarate 325 mg PO BID 30 days Xeljanz (tofacitinib) 5 mg PO BID NS HPI Comments Details: This is a 48-year-old female with seronegative RA who presents for follow-up. She started taking Xeljanz 5 mg Twice daily 3 months ago. She notes significant improvement. She states that she is walking better. Able to do much more at home. She gained a couple of lb. Does not report any side effects Initial history by Dr. Lomax: Patient was diagnosed with inflammatory arthritis in 2007 after the of her son when she presented with polyarthralgia. At that time she was noted to have synovitis and elevated inflammatory markers however her serology was negative for rheumatoid arthritis. She was started on methotrexate at that time with approved in her symptoms but then it appears she stop taking the medication on her own. Her initial JOSE was negative but in 2009 she tested positive in a ratio of 1:80. Rest of her serology was negative with normal complements. She was also noted to have Raynaud's. X-ray of her hands showed periarticular osteopenia at the MCPs. Her medication was then changed to Arava 10 mg daily which improved her symptoms but then this was stopped in 2017. Devleoped Neuropathy with Arava which resolved once she stopped the Arava. Gets intermittant head pain at the top of her head. Patient reports a history of Raynaud's in her fingers and her toes. Denies any history of digital ulcers. Denies photosensitivity, sicca symptoms, oral and nasal ulcers. [facility] Medical History Severe dysplasia of cervix JOSE positive Seronegative rheumatoid arthritis Surgical History (Reviewed 02/21/24 @ 13:31 by Shilpa Starks [facility]) History of dental surgery History of cataract surgery Family History Father Asthma COPD (chronic obstructive pulmonary disease) Diabetes Mother Arthritis Mental health disorder Sister Mental health disorder Ulcerative colitis Brother Mental health disorder Social History Housing: Apartment Alcohol intake: current Alcohol intake frequency: holidays/special occasions only Alcohol type: wine Patient Tobacco Use Status: Never used Tobacco e-Cigarette/Vaping Use: Never Used Second Hand Smoke Exposure: No service: No Current occupational status: unemployed Cognitive needs: No Hearing needs: No Vision needs: Yes (glasses) Review of Systems Musc Reports arthralgias and Denies joint swelling Physical Exam Vital Signs: Last Vital Signs Pulse 70 02/21/24 13:32 BP 94/62 02/21/24 13:32 Pulse Ox 100 02/21/24 13:32 Oxygen Delivery Method Room Air 02/21/24 13:32 BMI result Body Mass Index 21.7 Const General: cooperative, healthy appearing and comfortable Nutritional Appearance: average body habitus Orientation/consciousness: patient oriented x3 Limitations: no limitations HEENT Head: Yes normocephalic and Yes atraumatic Mouth: moist mucous membranes Resp Effort & Inspection: normal respiratory effort and able to speak in complete sentences Auscultation: clear to auscultation bilaterally Cardio Rate: regular rate Rhythm: regular rhythm GI Inspection: No distended Palpation (GI): Soft to palpation and nontender Skin Other: 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 There are no swollen joints on exam but she has multiple tender MCPs and PIP is Normal range of motion of elbows and shoulders without pain No knee pain with flexion-extension No ankle swelling or tenderness bilaterally Assessment & Plan Assessment & Plan (1) Seronegative rheumatoid arthritis: Comment: -ve RF -ve CCP Dx 2013. 2013 MTX helpful but caused nausea so it was stopped. [id number] Arava tried but stopped due to hair loss and hand paresthesias, improved with discontinuation 2018 Xeljanz and hydroxychloroquine seem to be helpful. Patient discontinued them because she thought dietary measures would be helpful. 12/2022 [employer] approved, didn't start due to rastafarian reasons. (can not take any monoclonal antibodies due to rastafarian reasons) Xeljanz 11/2023 effective Code(s): M06.00 - Rheumatoid arthritis without rheumatoid factor, unspecified site Category: Medical Plan: This is a 48-year-old female with seronegative RA who presents for follow-up. She started Xeljanz 5 mg Twice daily 3 months ago with dramatic improvement. No swollen joints on exam. She continues to have few tender joints. Inflammatory markers significantly improved. Continue Xeljanz 5 mg Twice daily Labs before next visit in 3 months (2) JOSE positive: Code(s): R76.8 - Other specified abnormal immunological findings in serum Category: Medical Plan: With positive dsDNA. No other features of lupus at this time however patient states that she gets intermittent rashes. Advised patient to take pictures. I would like to add hydroxychloroquine to her medication regimen to prevent SLE complications. Patient states that she was found to have cataracts and the positives in her eyes, this was before she started hydroxychloroquine. Advised patient to get clearance from marketing support manager (3) High risk medication use: Code(s): Z79.899 - Other long term acute care registered nurse (current) drug therapy Category: Medical Plan: We discussed the black box warning associated with Xeljanz. We discussed mildly increased risk of cardiovascular events, thromboembolic phenomenon and malignancy with Xeljanz. Advised patient to get up, walk and stretch in long trips to prevent DVT. She received Shingrix vaccine already Plan I spent 26 minutes reviewing patient's chart, evaluating patient, ordering diagnostic workup, counseling patient and documenting in the chart Orders: Orders Complement C3 3 Months M06.00 - Rheumatoid arthritis without rheumatoid factor, unspecified site DNA Double Stranded-Crithidia 3 Months M06.00 - Rheumatoid arthritis without rheumatoid factor, unspecified site C Reactive Protein 3 Months M06.00 - Rheumatoid arthritis without rheumatoid factor, unspecified site Protein Creatinine Ratio, Ur 3 Months M06.00 - Rheumatoid arthritis without rheumatoid factor, unspecified site Erythrocyte Sedimentation Rate 3 Months M06.00 - Rheumatoid arthritis without rheumatoid factor, unspecified site Complete Blood Count Auto Diff 3 Months M06.00 - Rheumatoid arthritis without rheumatoid factor, unspecified site Complement C4 3 Months M06.00 - Rheumatoid arthritis without rheumatoid factor, unspecified site UA w Microscopic 3 Months M06.00 - Rheumatoid arthritis without rheumatoid factor, unspecified site Comprehensive Met. Panel 3 Months M06.00 - Rheumatoid arthritis without rheumatoid factor, unspecified site Coding Level of Care Code Est Pt Level 4 (53211) Diagnoses Seronegative rheumatoid arthritis M06.00 JOSE positive R76.8 High risk medication use Z79.899
[2024-02-21 13:32] VITALS: BP 94/62; PULSE 70; O2SAT 100; BMI 21.7
== END 2024-02-21 14:04 | disposition home or self-care (01) ==
PROVIDERS: PCP Physician Assistant; Visit Provider Student in an Organized Health Care Education/Training Program
DX: M06.00 Rheumatoid arthritis without rheumatoid factor, unspecified site (principal); R76.8 Other specified abnormal immunological findings in serum; Z79.899 Other long term (current) drug therapy
CPT/HCPCS: 99214

== ENCOUNTER → 2024-02-21 13:15 | Outpatient (BNVA) | payer MEDICARE, MEDICAID, SELFPAY | PROVIDERS: PCP Physician Assistant; Visit Provider Student in an Organized Health Care Education/Training Program | DX: M06.00 Rheumatoid arthritis without rheumatoid factor, unspecified site (principal); R76.8 Other specified abnormal immunological findings in serum; Z79.899 Other long term (current) drug therapy | CPT/HCPCS: 99212 ==

== ENCOUNTER 2024-05-17 14:42 | Outpatient (REF) | payer MEDICARE, MEDICAID, SELFPAY ==
[2024-05-17 15:03] LABS: MANUAL DIFF FLAG NO
[2024-05-17 15:27] LABS: Basophils Percent Auto 0.5 % (0-2); Eosinophils Percent Auto 0.7 % (0-4); Hematocrit 34.7 % (37.0-47.0); Imm Gran Abs Auto 0.02 X10*3/uL (0.00-0.03); Imm Gran Pct Auto 0.5 % (0.0-0.4); Lymphocytes Absolute Auto 1.6 X10*3/uL (1.2-4.9); Lymphocytes Percent Auto 37.2 % (20-40); Mean Corpuscular HGB Conc 31.7 g/dl (31.0-35.0); Mean Corpuscular Hemoglobin 26.4 pg (27.0-33.0); Mean Corpuscular Volume 83.4 fL (80.0-98.0); Mean Platelet Volume 10.9 fL (9.4-12.3); Monocytes Absolute Auto 0.4 X10*3/uL (0.1-1.2); Monocytes Percent Auto 8.3 % (2-11); Neutrophils Absolute Auto 2.3 x10*3/uL (2.0-8.3); Neutrophils Percent Auto 52.8 % (45-73); Platelet Count 228 X10*3/uL (160-400); Red Blood Count 4.16 X10*6/uL (4.20-5.50); Red Cell Distribution Width 14.8 % (11.0-16.0); White Blood Count 4.4 X10*3/uL (4.8-10.8)
[2024-05-17 15:30] LABS: Appearance Urine Clear; Color Urine Yellow; Glucose Urine UA Negative (Negative); Leukocyte Esterase Urine Negative (Negative); Nitrite Urine Negative (Negative); PH 6.5 (5.0-9.0); UMIC TRIGGER UA YES; Urine Blood Trace (Negative); Urine Ketones Negative (Negative); Urine Protein Negative (Neg-Trace)
[2024-05-17 15:33] LABS: Bacteria Urine None Seen (None Seen); Hyaline Casts Urine 0-2 /LPF (0-2); RBC Urine 0-2 /HPF (0-2); WBC Urine 0-5 /HPF (0-5)
[2024-05-17 16:05] LABS: Erythrocyte Sedimentation Rate 34 MM/HR (0-20)
[2024-05-17 16:19] LABS: Creatinine Urine 92.86 mg/dL; Protein/Creatinine Ratio, Ur 0.09 (<0.2); Total Protein Urine Random 8 mg/dL (<12)
[2024-05-17 16:30] LABS: Alanine Aminotransferase 12 U/L (0-31); Alkaline Phosphatase 64 U/L (39-117); Anion Gap 12 (12-20); Aspartate Amino Transferase 16 U/L (5-31); Bilirubin Total 0.3 mg/dL (0.0-1.0); Blood Urea Nitrogen 13 mg/dL (9-16); C Reactive Protein 0.38 mg/dL (< or = 0.50); Calcium 8.9 mg/dL (8.4-10.2); Carbon Dioxide 23 mmol/L (22-29); Chloride 106 mmol/L (96-108); Estimated Glomerular Filt Rate > 60; Glucose Random 102 mg/dL (60-115); Potassium 3.8 mmol/L (3.3-5.1); Sodium 137 mmol/L (135-145); Total Protein 8.2 g/dL (6.5-8.0)
[2024-05-20 19:28] LABS: Complement C3 141 mg/dL (83-193)
[2024-05-23 14:23] LABS: DNAds, Crithidia Antibody Positive (Negative)
[2024-05-23 14:59] LABS: DNAds, Crithidia Antibody 1:40 titer (<1:10)
== END 2024-05-17 14:43 | disposition home or self-care (01) ==
LOC: HO.LAB 14:42
PROVIDERS: PCP Physician Assistant; Visit Provider Student in an Organized Health Care Education/Training Program
DX: M06.00 Rheumatoid arthritis without rheumatoid factor, unspecified site (principal)
CPT/HCPCS: 36415; 80053; 81001; 82570; 84156; 85025; 85652; 86140; 86160; 86255